=== PATIENT | female | born 1985 | race Caucasian/White ===

== ENCOUNTER 2018-05-08 02:19 | Emergency (ER) | payer OTHER, SELFPAY ==
[2018-05-08 02:21] VITALS: PULSE 104; RESP 20; TEMP 36.1; O2SAT 100; BMI 26.6
--- NOTE | 2018-05-08 02:24 | ED.RN ---
CALLED FOR EKG PER RN REQUEST, NO OLD EKGS IN MUSE
[2018-05-08 02:27] VITALS: BP 126/83; PULSE 114; RESP 18; O2SAT 100
--- NOTE | 2018-05-08 02:32 | RAD_ITS ---
STUDY: X-RAY CHEST REASON FOR EXAM: Female, 33 years old. Chest pain TECHNIQUE: Single AP portable view of the chest. COMPARISON: None. FINDINGS: The lungs are clear and expanded. There is no demonstrated pleural abnormality. Normal size heart. Normal mediastinum and cheryl. Normal visualized pulmonary arteries. Normal visualized aortic arch and descending thoracic aorta. Normal visualized thoracic spine. Normal visualized ribs, clavicles, and shoulders. There is no demonstrated abnormality of the visualized soft tissue structures of the upper abdomen. RAD/Chest 1 View (Portable) IMPRESSION: Normal x-ray examination of the chest. Electronically Signed: Willam Gu MD at 2:58 EST Tel , Service support ,
--- NOTE | 2018-05-08 02:32 | EKG12_ITS ---
Test Reason : CP Blood Pressure : / mmHG Vent. Rate : 113 BPM Atrial Rate : 113 BPM P-R Int : 132 ms QRS Dur : 084 ms QT Int : 328 ms P-R-T Axes : 073 086 041 degrees QTc Int : 449 ms Sinus tachycardia Possible Left atrial enlargement Nonspecific ST abnormality Abnormal ECG Confirmed by TERRENCE VILLALOBOS, YOLIS ([id number]), proposal editor LAURA ROWLEY ([id number]) on 05/08/2018 5:17:14 PM Referred By: GABRIELA Confirmed By:YOLIS OCAMPO MD
--- NOTE | 2018-05-08 02:38 | ED.VISSUMM ---
- ER Visit Summary Date of Service: 05/08/18 Chief Complaint: Epigastric pain History of Present Illness: The patient is a 33 F is a process recurrent epigastric pain over the past year. She was seen by her PCP and started on antacids. She was seen by GI and had a recent upper scope done. This showed scarring in her esophagus from reflux. Biopsies were taken. Patient has an appointment on the for follow-up with GI. Patient states pain has been increasing again over the past 3 days. She is been unable to eat. She woke from sleep with severe pain early this morning and came in. Physical Examination: Vital signs significant only for heart rate of 114. Patient sitting upright in bed. She appears uncomfortable but in no distress. Head neck examination unremarkable. Heart is tachycardic. Lungs sounds are clear. Abdomen is soft with focal tenderness in epigastrium. No guarding or rebound. Hypoactive bowel sounds are noted. Test Results: CBC was a white count 11.6 with 72% neutrophils. Chemistry studies significant for potassium 3.0. Glucose is 121. LFTs show total bili 1.4 and a direct bili 0.52. AST is 43. Lipase is normal. Troponin is negative. test negative. EKG is sinus tach at 113. There is minimal ST depression in the inferior lateral leads. Portable chest x-ray is unremarkable, specifically no free air under the diaphragm. Emergency Department Course and Treatment: Patient was given morphine, Zofran, IV fluids, and Carafate. I was able to review the report from an outside facility for right upper quadrant ultrasound was performed on April 13. This study was unremarkable. On repeat examination patient states pain is improved, but still present. She is given a GI cocktail. On final repeat exam patient states the pain is improved. She still describes as a dull burning sensation, but similar to how the pain was 2 days ago when it initially started back up again. Should be given prescription for Carafate and Protonix at home that she can use instead of her Nexium. She will also be given potassium replacement. Treatment Plan: [] Disposition: Discharge Impression: 1. Epigastric pain 2. Hypokalemia This note was generated with Forsakeation software. It may contain incorrect words, spelling, and punctuation that were not noted in review of the chart prior to signing ED Disposition - Plan for ED Patient: Chief Complaint: Chest Pain Referrals: Alyssa Pendleton DO [Primary Care Provider] -
[2018-05-08] MEDS: Sucralfate 1 GM Tablet PO (02:41)
[2018-05-08] MEDS: Morphine 4 MG/ML Syringe IV (02:43)
[2018-05-08] MEDS: 0.9% Normal Saline 1,000 ML 150 ML IV (02:43)
[2018-05-08] MEDS: Ondansetron 4 MG/2 ML Vial IV (02:43)
[2018-05-08 02:44] LABS: Absolute Lymphocyte Count 2.26 X10^3/ul (0.83-4.51); Absolute Neutrophil Count 8.4 X10^3/uL (2.0-7.7); Basophil# 0.02 X10^3/uL; Basophil% 0.2 % (0-1); Eosinophil# 0.08 X10^3/uL; Eosinophils% 0.7 % (0-5); Hematocrit 41.8 % (37-47); Hemoglobin 14.3 g/dl (12.0-15.0); Lymphocyte # 2.26 X10^3/ul (4.0); Lymphocyte % 19.5 % (19-41); Mean Corp Hgb Conc 34.2 g/gl (32-36); Mean Corpuscular Hgb 30.3 pg (27.0-32.0); Mean Corpuscular Volume 88.6 fL (81-99); Mean Platelet Vol. 9.2 fl (6.2-12.0); Monocyte# 0.77 X10^3/uL; Monocyte% 6.6 % (0-10); Neutrophil # 8.43 X10^3/uL (2.7-7.7); Neutrophil % 72.8 % (47-70); POSITIVE COUNT NO; POSITIVE DIFFERENTIAL NO; POSITIVE MORPHOLOGY NO; Platelet Count 389 K/mm3 (150-450); RBC Distribution Width CV 12.6 % (11.6-14.6); RBC Distribution Width SD 40.7 fl (35.1-43.9); Red Blood Count 4.72 M/mm3 (4.2-5.4); White Blood Count 11.6 K/mm3 (4.4-11.0)
[2018-05-08 03:02] LABS: AST(SGOT) 43 U/L (15-37); Alanine Aminotransfer ALT/SGPT 31 U/L (13-56); Albumin, Serum 4.1 g/dL (3.2-5.0); Alkaline Phosphatase 109 U/L (45-117); Anion Gap 14 (5-15); BUN 7 mg/dL (7-18); BUN/Creat Ratio 7.4 RATIO (10-20); Bilirubin, Direct 0.52 mg/dL (0.00-0.30); Calcium,Total 9.6 mg/dL (8.5-10.1); Chloride 101 mmol/L (98-107); Creatinine, Serum 0.94 mg/dL (0.55-1.02); EST Glomerular Filtration Rate 73 mL/min (>60); Est Glom Filt Rate - Afr Amer 89 mL/min (>60); Estimated Creatinine Clearance 68.58 ml/min; Globulin 4.3 g/dL (2.2-4.2); Glucose 121 mg/dL (74-106); Lipase 124 U/L (73-393); Protein, Total 8.4 g/dL (6.4-8.2); Sodium Level 136 mmol/L (136-145)
[2018-05-08 03:06] LABS: Pregnancy, Serum, hCG Quali. NEGATIVE Negative (0-9 Nonpreg)
[2018-05-08] MEDS: Mag Hydrox/Al Hydrox/Simeth 30 ML UDC PO (03:20)
[2018-05-08 03:24] VITALS: BP 133/70; PULSE 75; RESP 16; O2SAT 97
--- NOTE | 2018-05-08 04:00 | ED.DEP ---
ED Disposition - Plan for ED Patient: Disposition: Home or Assisted Living Chief Complaint: Chest Pain Instructions: ED Epigastric Pain [facility] Prescriptions: Pantoprazole Sodium [Protonix] 40 mg PO DAILY #14 tablet Potassium Chloride [K-Dur] 20 meq PO BID #7 tablet Sucralfate [Carafate] 1 gm PO 4X/DAY #30 tablet Additional Instructions: Follow-up with your GI doctor tomorrow as scheduled.
[2018-05-08 04:06] VITALS: BP 128/78; PULSE 80; RESP 14; O2SAT 97; O2SAT 98
== END 2018-05-08 04:15 | disposition home or self-care (01) ==
PROVIDERS: Emergency Provider Emergency Medicine
DX: R10.13 Epigastric pain (principal); E87.6 Hypokalemia; K21.9 Gastro-esophageal reflux disease without esophagitis; Z87.19 Personal history of other diseases of the digestive system; Z79.899 Other long term (current) drug therapy
CPT/HCPCS: 71045; 80048; 80076; 83690; 84484; 84703; 85025; 93005; 96361; 96374; 96375; 99285; J7030; A4216; J2405

== ENCOUNTER 2018-05-08 15:00 | Inpatient (IN) | payer OTHER, SELFPAY ==
[2018-05-08 02:21] VITALS: BMI 26.6
[2018-05-08 15:00] VITALS: BP 140/75; PULSE 92; RESP 18; TEMP 36.9; O2SAT 100; BMI 26.5
[2018-05-08] MEDS: 0.9% Normal Saline 1,000 ML 125 ML IV ×2 (15:28→18:58)
[2018-05-08] MEDS: HYDROmorphone 1 MG/ML Syringe IV ×3 (15:29→22:40)
[2018-05-08] MEDS: Ondansetron 4 MG/2 ML Vial IV ×2 (15:29→21:59)
--- NOTE | 2018-05-08 15:40 | ED.VISSUMM ---
- ER Visit Summary Date of Service: 05/08/18 Chief Complaint: [Abdominal pain] History of Present Illness: The patient is a 33 F [presents the emergency department complaint of abdominal pain is for 4 days ago. Patient states pain is been continuous and is located in the upper abdomen at times radiates to her back and chest. Patient was seen in the emergency department at 2 AM today for the same complaint and had lab workup which was relatively unremarkable. Patient was discharged home with Carafate as well as an antacid. Patient had similar pain off and on for the last 8 months and is seeming associate [employer]. Before patient had an EGD and dilatation of her esophagus apparently as she was having some difficulty swallowing and did well for several weeks afterwards. Patient denies any fevers. She denies any blood in her stool or black tarry stool. Patient did have one episode of vomiting today. She does state the pain seems to be worse with food as well as with walking. Patient has had prior appendectomy. Patient has had prior C-sections.] Patient also tells me that she had a ultrasound of the gallbladder and upper abdomen about 3 weeks ago that did not show gallstones and was unremarkable. Physical Examination: [HEENT-PERRLA, EOMI. Cranial nerves II through XII grossly intact. TMs clear. Mucous membranes moist. No adenopathy. Cardiovascular-regular rate and rhythm without murmur or ectopy Lungs-clear to auscultation, chest wall stable without crepitus or subcu emphysema Abdomen-normoactive bowel sounds, soft. Patient does have tenderness palpation over the epigastric region and right upper quadrant. There is no rebound, rigidity, or perineal signs. Extremities-intact ?4, normal range of motion, normal pulses, atraumatic] Test Results: [CBC with differential obtained showed white count 10.2, hemoglobin 13.5, hematocrit 41, platelets 354. Chemistries unremarkable. Total bilirubin was 3.8, alk phos 151, ALT 88, AST 91, lipase 159. Lactate was 0.8.] Ultrasound of the gallbladder was ordered and results are currently pending however the surgeon did look at the images and noted that the patient had gallstones. Emergency Department Course and Treatment: [Patient was medicated with Dilaudid and Zofran. Patient received normal saline.] Treatment Plan: [Case was discussed with general surgeon on-call Dr. Damon Young who evaluated patient in the emergency department and evaluated the ultrasound. ] Disposition: [Admit] Impression: [Abdominal pain Cholelithiasis ] This note was generated with [employer]omik dictation software. It may contain incorrect words, spelling, and punctuation that were not noted in review of the chart prior to signing ED Disposition - Plan for ED Patient: Chief Complaint: Abd Pain Referrals: Alyssa Pendleton DO [Primary Care Provider] -
[2018-05-08 15:46] LABS: Absolute Lymphocyte Count 0.86 X10^3/ul (0.83-4.51); Absolute Neutrophil Count 8.6 X10^3/uL (2.0-7.7); Basophil# 0.02 X10^3/uL; Basophil% 0.2 % (0-1); Eosinophil# 0.01 X10^3/uL; Eosinophils% 0.1 % (0-5); Hematocrit 40.6 % (37-47); Hemoglobin 13.5 g/dl (12.0-15.0); Lymphocyte # 0.86 X10^3/ul (4.0); Lymphocyte % 8.5 % (19-41); Mean Corp Hgb Conc 33.3 g/gl (32-36); Mean Corpuscular Hgb 30.1 pg (27.0-32.0); Mean Corpuscular Volume 90.4 fL (81-99); Mean Platelet Vol. 9.3 fl (6.2-12.0); Monocyte# 0.65 X10^3/uL; Monocyte% 6.4 % (0-10); Neutrophil % 84.6 % (47-70); POSITIVE COUNT NO; POSITIVE DIFFERENTIAL NO; POSITIVE MORPHOLOGY NO; Platelet Count 354 K/mm3 (150-450); RBC Distribution Width CV 12.8 % (11.6-14.6); RBC Distribution Width SD 41.7 fl (35.1-43.9); Red Blood Count 4.49 M/mm3 (4.2-5.4); White Blood Count 10.2 K/mm3 (4.4-11.0)
[2018-05-08 16:00] LABS: ALB/GLOB Ratio 0.9 RATIO (0.9-2.4); AST(SGOT) 91 U/L (15-37); Alanine Aminotransfer ALT/SGPT 88 U/L (13-56); Alkaline Phosphatase 151 U/L (45-117); Anion Gap 8 (5-15); BUN 6 mg/dL (7-18); BUN/Creat Ratio 7.7 RATIO (10-20); Calcium,Total 9.4 mg/dL (8.5-10.1); Chloride 103 mmol/L (98-107); Creatinine, Serum 0.78 mg/dL (0.55-1.02); EST Glomerular Filtration Rate 91 mL/min (>60); Est Glom Filt Rate - Afr Amer 111 mL/min (>60); Estimated Creatinine Clearance 82.65 ml/min; Globulin 4.3 g/dL (2.2-4.2); Glucose 99 mg/dL (74-106); Lipase 159 U/L (73-393); Potassium 3.8 mmol/L (3.5-5.1); Protein, Total 8.3 g/dL (6.4-8.2); Sodium Level 136 mmol/L (136-145)
[2018-05-08 16:49] LABS: Lactic Acid 0.8 mmol/L (0.4-2.0)
--- NOTE | 2018-05-08 17:08 | US_ITS ---
STUDY: ABDOMINAL ULTRASOUND - RIGHT UPPER QUADRANT REASON FOR VISIT: Female, 33 years old. Right upper quadrant and back pain TECHNIQUE: Ultrasound evaluation of the right upper quadrant was performed with real-time and static bacon-scale imaging. TECHNICAL QUALITY: Adequate. COMPARISON: None. FINDINGS: Liver: The liver measures 19.3 cm. There is normal echogenicity of the liver. The bile ducts are dilated. There is hepatic color flow. The direction of portal flow is hepatopetal. There is no demonstrated mass lesion. Gallbladder: There is a markedly distended gallbladder. The gallbladder wall measures 3 mm. There is a positive sonographic Fernandez's sign. There is no pericholecystic fluid. gallstones and sludge. Common Bile Duct (C.B.D.): The common bile duct measures 7 mm. Pancreas: Normal size of the head, body and tail of the pancreas. There is normal echogenicity of the pancreas. There is no demonstrated pancreatic mass or cyst. Right Kidney: Normal size of the right kidney. The right kidney measures 10.3 cm. Normal renal cortex. The right cortex measures 1.3 cm. There is no demonstrated renal mass or cyst. There is no right hydronephrosis. US/Gallbladder IMPRESSION: Cholelithiasis, possible cholecystitis, and probable common bile duct obstruction. Recommend follow-up HIDA scan and/or MRCP. Electronically Signed: Faraz Britt MD at 19:17 EST , Service support ,
[2018-05-08 17:44] VITALS: BP 137/96; PULSE 89; RESP 16; O2SAT 99
--- NOTE | 2018-05-08 17:45 | NURSING ---
MED SURG ABD PAIN, BILIARY COLIC, CHOLELITHIASIS OLIVER
--- NOTE | 2018-05-08 18:02 | PCM.HP.STD ---
Problem List (1) Obstructive jaundice Status: Acute (2) Cholelithiasis Status: Acute Qualifiers: Cholelithiasis location: bile duct Cholecystitis presence: with cholecystitis Cholecystitis acuity: acute Biliary obstruction: with biliary obstruction Qualified Code(s): K80.43 - Calculus of bile duct with acute cholecystitis with obstruction History of Present Illness Date of Admission: 05/08/18 The patient is a 33 year old F complaining of epigastric and right upper quadrant pain. The pain started at the end of March. She was at another hospital on April 12 and had dilation of the distal esophagus with EGD. The patient had an ultrasound at the outside hospital which apparently showed nothing. Today she was in the emergency room earlier today with right upper quadrant pain and LFTs were slightly elevated. She was sent home. She presented back with continuing pain and nausea and vomiting. Past Medical History Allergies No Known Allergies Allergy (Verified 05/08/18 15:02) Home Medications: Ambulatory Orders Medication Instructions Recorded Norethindrone-E.estradiol-Iron 1 tab PO DAILY 05/08/18 [Tri-Legest Fe-28 Day Tablet] Pantoprazole Sodium [Protonix] 40 mg PO DAILY #14 tablet 05/08/18 Potassium Chloride [K-Dur] 20 meq PO BID #7 tablet 05/08/18 Sucralfate [Carafate] 1 gm PO 4X/DAY #30 tablet 05/08/18 Surgical History: - - and open appendectomy Smoking Status: Never smoker Alcohol: None Drugs: None - *Family History Maternal History Items: - - Gallbladder issues Review of Systems Constitutional: Reports: Anorexia. Denies: Fever HEENT: Denies: Difficulty Swallowing Cardiovascular: Denies: Chest Pain Respiratory: Denies: Cough, Shortness of Breath Gastrointestinal: Reports: Abdominal Pain, Nausea, Vomiting. Denies: Hematemesis, Hematochezia Genitourinary: Denies: Dysuria Musculoskeletal: Denies: Leg Pain Skin: Denies: Dryness, Jaundice Neurological: Denies: Balance problems Psychiatric: Denies: Anxiety, Depression Hematologic/ Lymphatic: Denies: Anemia VTE Information - Inpt Only VTE Present on Admission: No VTE Mechan Device Prophylaxis: SCD's Patient Problems: Active and Suspected Problems Obstructive jaundice (Acute) Cholelithiasis (Acute) - Physical Exam General: Alert, Oriented x3, Cooperative HEENT: Atraumatic, PERRLA, EOMI Neck: No JVD Lungs: Normal air movement Cardiovascular: Regular rate, Regular Rhythm Abdomen: Soft, Non-Distended, Tender - Tender in the right upper quadrant Extremities: No clubbing Skin: No rashes Musculoskeletal: No Muscle Wasting Neurological: Cranial nerves II-XII grossly intact Psych/Mental Status: Normal Affect Vital Signs Temp Pulse Resp BP Pulse Ox 98.5 F 89 16 137/96 H 99 05/08/18 15:00 05/08/18 17:44 05/08/18 17:44 05/08/18 17:44 05/08/18 17:44 Oxygen Delivery Method Room Air Weight: 145 lb Body Mass Index (BMI) 26.5 Laboratory Tests Past 24 Hrs 05/08/18 05/08/18 05/08/18 15:30 15:30 15:30 WBC 10.2 RBC 4.49 Hgb 13.5 Hct 40.6 MCV 90.4 MCH 30.1 MCHC 33.3 RDW 12.8 RDW Differential 41.7 Plt Count 354 MPV 9.3 Immature Gran % (Auto) 0.200 Neut % (Auto) 84.6 H Lymph % (Auto) 8.5 L [place] % (Auto) 6.4 Eos % (Auto) 0.1 Baso % (Auto) 0.2 Absolute Neuts (auto) 8.6 H Absolute Lymphs (auto) 0.86 Total Counted Not Reportable Sodium 136 Potassium 3.8 Chloride 103 Carbon Dioxide 25.0 Anion Gap 8 BUN 6 L Creatinine 0.78 Estim Creat Clear Calc 82.65 Est GFR (MDRD) Af Amer 111 Est GFR (MDRD) Non-Af 91 BUN/Creatinine Ratio 7.7 L Glucose 99 Lactic Acid Cancelled Calcium 9.4 Total Bilirubin 3.80 H AST 91 H ALT 88 H Alkaline Phosphatase 151 H Total Protein 8.3 H Albumin 4.0 Globulin 4.3 H Albumin/Globulin Ratio 0.9 Lipase 159 05/08/18 16:19 WBC RBC Hgb Hct MCV MCH MCHC RDW RDW Differential Plt Count MPV Immature Gran % (Auto) Neut % (Auto) Lymph % (Auto) [place] % (Auto) Eos % (Auto) Baso % (Auto) Absolute Neuts (auto) Absolute Lymphs (auto) Total Counted Sodium Potassium Chloride Carbon Dioxide Anion Gap BUN Creatinine Estim Creat Clear Calc Est GFR (MDRD) Af Amer Est GFR (MDRD) Non-Af BUN/Creatinine Ratio Glucose Lactic Acid 0.8 Calcium Total Bilirubin AST ALT Alkaline Phosphatase Total Protein Albumin Globulin Albumin/Globulin Ratio Lipase Assessment/Plan All Active Problems Obstructive jaundice (Acute) Cholelithiasis (Acute) 33-year-old female with obstructive jaundice 1. The patient had gallstones on ultrasound of her gallbladder. Also slightly distended common bile duct. Her liver enzymes have doubled since this morning when she was in the emergency room. 2. I explained all this to the patient and I explained ERCP and subsequent laparoscopic cholecystectomy of the patient. I explained that if her liver enzymes continue to be elevated tomorrow I will do an ERCP tomorrow with a laparoscopic cholecystectomy the following day. I explained that if her liver enzymes decreased and she is feeling better I will take her for laparoscopic cholecystectomy with cholangiogram tomorrow. 3. I explained both laparoscopic cholecystectomy and ERCP to the patient in great detail. I explained the risks including but not limited to bleeding, infection, perforation of the bile duct or bowel, pancreatitis, injury to the structures surrounding the gallbladder such as the liver or bowels. The patient understands risks and willing to proceed with both procedures if needed. 4. I will admit the patient tonight and checked LFTs in the morning. I will start her on antibiotics due to the obstructive jaundice to prevent cholangitis. The patient will remain n.p.o. on IV fluids. Damon Weinstein MD Pager: [facility] [address] [place] [address], [address] [place] [address] Office:
[2018-05-08 18:48] VITALS: BMI 26.1
[2018-05-08 18:51] VITALS: BP 138/67; PULSE 71; RESP 16; TEMP 37; O2SAT 100
[2018-05-08] MEDS: Piperacil/Tazobactam 3.375 GM/50 ML ML IV (18:58)
[2018-05-08 19:08] VITALS: BMI 26.1
[2018-05-08] MEDS: Morphine 2 MG/ML Syringe IV (20:46)
[2018-05-08 20:49] VITALS: BP 137/84; PULSE 62; RESP 16; TEMP 36.8; O2SAT 100
[2018-05-08 20:50] VITALS: BP 126/86; PULSE 87; RESP 16; TEMP 36.9; O2SAT 100; BMI 26.2
[2018-05-09] VITALS (9 sets, daily range): BP systolic 102–126; BP diastolic 54–86; PULSE 74–115; RESP 16–18; TEMP 36.5–37.2; O2SAT 93–100
[2018-05-09] MEDS: HYDROmorphone 1 MG/ML Syringe IV ×5 (00:40→17:02)
[2018-05-09] MEDS: 0.9% NaCl Peripheral Flush Adult/Peds IV ×3 (00:40→05:48)
[2018-05-09] MEDS: 0.9% Normal Saline 1,000 ML 125 ML IV ×4 (02:48→22:57)
[2018-05-09] MEDS: Piperacil/Tazobactam 3.375 GM/50 ML ML IV ×3 (05:49→21:44)
[2018-05-09] MEDS: Ondansetron 4 MG/2 ML Vial IV ×2 (06:00→17:01)
[2018-05-09 06:05] LABS: Absolute Lymphocyte Count 1.62 X10^3/ul (0.83-4.51); Absolute Neutrophil Count 5.3 X10^3/uL (2.0-7.7); Basophil# 0.02 X10^3/uL; Basophil% 0.3 % (0-1); Eosinophil# 0.04 X10^3/uL; Eosinophils% 0.5 % (0-5); Hematocrit 35.2 % (37-47); Hemoglobin 11.4 g/dl (12.0-15.0); Lymphocyte # 1.62 X10^3/ul (4.0); Lymphocyte % 21.1 % (19-41); Mean Corp Hgb Conc 32.4 g/gl (32-36); Mean Corpuscular Hgb 29.7 pg (27.0-32.0); Mean Corpuscular Volume 91.7 fL (81-99); Mean Platelet Vol. 9.2 fl (6.2-12.0); Monocyte# 0.66 X10^3/uL; Monocyte% 8.6 % (0-10); Neutrophil # 5.31 X10^3/uL (2.7-7.7); Neutrophil % 69.4 % (47-70); Platelet Count 270 K/mm3 (150-450); RBC Distribution Width CV 13.2 % (11.6-14.6); RBC Distribution Width SD 43.5 fl (35.1-43.9); Red Blood Count 3.84 M/mm3 (4.2-5.4); White Blood Count 7.7 K/mm3 (4.4-11.0)
[2018-05-09 06:18] LABS: POSITIVE COUNT NO; POSITIVE DIFFERENTIAL NO; POSITIVE MORPHOLOGY NO
[2018-05-09 06:27] LABS: ALB/GLOB Ratio 0.9 RATIO (0.9-2.4); AST(SGOT) 64 U/L (15-37); Alanine Aminotransfer ALT/SGPT 77 U/L (13-56); Albumin, Serum 3.1 g/dL (3.2-5.0); Alkaline Phosphatase 132 U/L (45-117); Anion Gap 10 (5-15); BUN 4 mg/dL (7-18); BUN/Creat Ratio 5.9 RATIO (10-20); Calcium,Total 8.3 mg/dL (8.5-10.1); Chloride 107 mmol/L (98-107); Creatinine, Serum 0.68 mg/dL (0.55-1.02); EST Glomerular Filtration Rate 108 mL/min (>60); Est Glom Filt Rate - Afr Amer 131 mL/min (>60); Estimated Creatinine Clearance 94.81 ml/min; Globulin 3.4 g/dL (2.2-4.2); Glucose 80 mg/dL (74-106); Potassium 3.9 mmol/L (3.5-5.1); Protein, Total 6.5 g/dL (6.4-8.2); Sodium Level 140 mmol/L (136-145)
--- NOTE | 2018-05-09 07:51 | PN.SURG_ITS ---
Patient Problems: Active and Suspected Problems Obstructive jaundice (Acute) Cholelithiasis (Acute) Subjective: The patient still having right upper quadrant pain this morning. - Physical Exam General: Alert, Oriented x3, Cooperative Cardiovascular: Regular rate, Regular Rhythm Abdomen: Soft, Non-Distended, Tender Extremities: No clubbing Vital Signs Temp Pulse Resp BP Pulse Ox 98.9 F 78 16 125/74 H 98 05/09/18 02:50 05/09/18 02:50 05/09/18 02:50 05/09/18 02:50 05/09/18 02:50 Oxygen Delivery Method Room Air Weight: 142 lb 10.225 oz Body Mass Index (BMI) 26.1 Intake and Output for Last 24 Hours 05/07/18 05/08/18 05/09/18 23:59 23:59 23:59 Intake Total 582 / 582 743 / 743 Balance 582 / 582 743 / 743 Laboratory Tests Past 24 Hrs 05/08/18 05/08/18 05/08/18 15:30 15:30 15:30 WBC 10.2 RBC 4.49 Hgb 13.5 Hct 40.6 MCV 90.4 MCH 30.1 MCHC 33.3 RDW 12.8 RDW Differential 41.7 Plt Count 354 MPV 9.3 Immature Gran % (Auto) 0.200 Neut % (Auto) 84.6 H Lymph % (Auto) 8.5 L [place] % (Auto) 6.4 Eos % (Auto) 0.1 Baso % (Auto) 0.2 Absolute Neuts (auto) 8.6 H Absolute Lymphs (auto) 0.86 Total Counted Not Reportable Sodium 136 Potassium 3.8 Chloride 103 Carbon Dioxide 25.0 Anion Gap 8 BUN 6 L Creatinine 0.78 Estim Creat Clear Calc 82.65 Est GFR (MDRD) Af Amer 111 Est GFR (MDRD) Non-Af 91 BUN/Creatinine Ratio 7.7 L Glucose 99 Lactic Acid Cancelled Calcium 9.4 Total Bilirubin 3.80 H AST 91 H ALT 88 H Alkaline Phosphatase 151 H Total Protein 8.3 H Albumin 4.0 Globulin 4.3 H Albumin/Globulin Ratio 0.9 Lipase 159 05/08/18 05/09/18 05/09/18 16:19 05:40 05:40 WBC 7.7 RBC 3.84 L Hgb 11.4 L Hct 35.2 L MCV 91.7 MCH 29.7 MCHC 32.4 RDW 13.2 RDW Differential 43.5 Plt Count 270 MPV 9.2 Immature Gran % (Auto) 0.100 Neut % (Auto) 69.4 Lymph % (Auto) 21.1 [place] % (Auto) 8.6 Eos % (Auto) 0.5 Baso % (Auto) 0.3 Absolute Neuts (auto) 5.3 Absolute Lymphs (auto) 1.62 Total Counted Not Reportable Sodium 140 Potassium 3.9 Chloride 107 Carbon Dioxide 23.0 Anion Gap 10 BUN 4 L Creatinine 0.68 Estim Creat Clear Calc 94.81 Est GFR (MDRD) Af Amer 131 Est GFR (MDRD) Non-Af 108 BUN/Creatinine Ratio 5.9 L Glucose 80 Lactic Acid 0.8 Calcium 8.3 L Total Bilirubin 4.50 H AST 64 H ALT 77 H Alkaline Phosphatase 132 H Total Protein 6.5 Albumin 3.1 L Globulin 3.4 Albumin/Globulin Ratio 0.9 Lipase Medical Necessity - Tobacco Use Smoking Status: Never smoker Assessment/Plan All Active Problems Obstructive jaundice (Acute) Cholelithiasis (Acute) 33-year-old female with obstructive jaundice and cholelithiasis 1. The patient's bilirubin has continued to rise. I do recommend ERCP before cholecystectomy to ensure that the duct is clear. I went over the procedure with the patient once more this morning and all questions were answered. We will proceed with ERCP this afternoon and laparoscopic cholecystectomy tomorrow morning. Damon Weinstein MD Pager: [facility] [address] [place] [address], [address] [place] [address] Office:
[2018-05-09 08:54] LABS: Internal QC Validated? YES +Cl - CLEAR BKGD; Pregnancy, Urine Negative Negative
--- NOTE | 2018-05-09 09:55 | NURSING ---
report given to Bella schofield on ac
--- NOTE | 2018-05-09 10:00 | RAD_ITS ---
STUDY: ERCP. REASON FOR EXAM: Female, 33 years old. Choledocholithiasis. FLUOROSCOPY TIME (if supplied): (10:57) minutes/seconds. 6 images were submitted. TECHNIQUE: An ERCP was performed by the surgeon. Contrast was injected. Imaging was submitted. COMPARISON: None. FINDINGS: Mild dilatation of the common bile duct. Small filling defects are seen in the distal portion of the common bile duct. This is suggestive of choledocholithiasis. A stent was placed. RAD/ERCP Biliary Only IMPRESSION: Choledocholithiasis. Biliary ductal stent placement. Electronically Signed: Sunday Cuevas MD at 14:15 EST Tel [phone], Service support ,
--- NOTE | 2018-05-09 11:00 | GALL_PTH ---
PATIENT: RIO CASTELLON LOC: MS2 U#:[id number] AGE/SX: 33/F ROOM: MS210 RE05/08/[address]: Dr. Damon Weinstein MD : [id number] BED: 1 DIS: 05/10/2018 SPEC #: [id number] RECD: 05/10/18 09:46 STATUS: NEAL REHoracio #: [id number] GURU: 05/09/18 11:[address]: Damon Weinstein DEPT: SURGICAL PATHOLOGY RECD BY: Alexsander Schafer ENTERED: 05/10/18 12:16 SP TYPE: OUMAR TODD DR: Dr. Alyssa Pendleton, Tissues: Gallbladder, NOS Procedures: Surgery Specimen Level III HEADER OPERATION: Partial laparoscopic cholecystectomy with IOC PRE-OP DIAGNOSIS: Cholelithiasis, acute cholecystitis TISSUE SUBMITTED: Gallbladder MICROSCOPIC DIAGNOSIS Gallbladder, cholecystectomy: Chronic cholecystitis. Benign pericystic lymph node. AM:vince 05/11/18 MICROSCOPIC DESCRIPTION Slides are reviewed. GROSS DESCRIPTION Received is one container labeled with the patient's name and designated gallbladder. The specimen consists of a gallbladder measuring 7.5 cm in length and up to 4 cm in diameter. The proximal cystic duct resection margin measures up to 2.5 cm in diameter. The external surface is pink-vang, smooth and glistening for the most part. Focally it is granular, hemorrhagic and contains cautery artifact. The gallbladder contains light yellow to hemorrhagic bile. The mucosa is bile-stained and without any mass lesions. No stones are identified. The gallbladder wall measures up to 0.4 cm in thickness. Smocker sections from the gallbladder and the cystic duct are submitted in one cassette. / SJ:vince 05/10/18 TC:3 [facility]: [id number]
[2018-05-09] MEDS: Pantoprazole Sodium 40 MG Tablet PO (17:17)
[2018-05-10] VITALS (10 sets, daily range): BP systolic 111–141; BP diastolic 73–89; PULSE 72–94; RESP 16–18; TEMP 36.7–37.5; O2SAT 97–100; BMI 27.1
[2018-05-10] MEDS: Piperacil/Tazobactam 3.375 GM/50 ML ML IV ×2 (05:39→12:41)
[2018-05-10] MEDS: 0.9% Normal Saline 1,000 ML 125 ML IV (05:40)
[2018-05-10 05:45] LABS: Absolute Lymphocyte Count 1.79 X10^3/ul (0.83-4.51); Absolute Neutrophil Count 3.1 X10^3/uL (2.0-7.7); Basophil# 0.02 X10^3/uL; Basophil% 0.4 % (0-1); Eosinophil# 0.05 X10^3/uL; Eosinophils% 0.9 % (0-5); Hematocrit 32.8 % (37-47); Hemoglobin 10.6 g/dl (12.0-15.0); Lymphocyte # 1.79 X10^3/ul (4.0); Mean Corp Hgb Conc 32.3 g/gl (32-36); Mean Corpuscular Hgb 29.9 pg (27.0-32.0); Mean Corpuscular Volume 92.4 fL (81-99); Mean Platelet Vol. 9.2 fl (6.2-12.0); Monocyte# 0.45 X10^3/uL; Monocyte% 8.3 % (0-10); Neutrophil # 3.11 X10^3/uL (2.7-7.7); Neutrophil % 57.2 % (47-70); Platelet Count 249 K/mm3 (150-450); RBC Distribution Width SD 42.6 fl (35.1-43.9); Red Blood Count 3.55 M/mm3 (4.2-5.4); White Blood Count 5.4 K/mm3 (4.4-11.0)
[2018-05-10 05:49] LABS: POSITIVE COUNT NO; POSITIVE DIFFERENTIAL NO; POSITIVE MORPHOLOGY NO
--- NOTE | 2018-05-10 05:53 | NURSING ---
Taken to surgery at this time with [employer]AL[employer] SYSTEMS MANAGER Jeffry. in attendance. Report given to AC
[2018-05-10 06:07] LABS: ALB/GLOB Ratio 0.9 RATIO (0.9-2.4); AST(SGOT) 53 U/L (15-37); Alanine Aminotransfer ALT/SGPT 68 U/L (13-56); Alkaline Phosphatase 130 U/L (45-117); Anion Gap 10 (5-15); BUN 3 mg/dL (7-18); BUN/Creat Ratio 5.2 RATIO (10-20); Calcium,Total 8.5 mg/dL (8.5-10.1); Chloride 108 mmol/L (98-107); Creatinine, Serum 0.58 mg/dL (0.55-1.02); EST Glomerular Filtration Rate 128 mL/min (>60); Est Glom Filt Rate - Afr Amer 155 mL/min (>60); Estimated Creatinine Clearance 106.05 ml/min; Globulin 3.3 g/dL (2.2-4.2); Glucose 86 mg/dL (74-106); Potassium 3.4 mmol/L (3.5-5.1); Protein, Total 6.3 g/dL (6.4-8.2); Sodium Level 140 mmol/L (136-145)
--- NOTE | 2018-05-10 07:30 | RAD_ITS ---
STUDY: INTRAOPERATIVE CHOLANGIOGRAM. REASON FOR EXAM: Female, 33 years old. Obstructive jaundice. Prior attempted stone removal and stent placement. FLUOROSCOPY TIME (if supplied): (0:29) minutes/seconds TECHNIQUE: Intraoperative cholangiogram was performed. COMPARISON: Comparison is made with prior ERCP dated May 09, 2018. FINDINGS: This is a limited study. There is mild dilatation of the intrahepatic biliary ducts. Questionable tiny intraluminal defects in the common bile duct. RAD/Cholangiogram/ O R,Initial IMPRESSION: Limited examination. Electronically Signed: Sunday Cuevas MD at 7:52 EST Tel [phone], Service support ,
[2018-05-10] MEDS: Bupiv/Epi 0.5% Mpf 30 ML Vial (08:44)
--- NOTE | 2018-05-10 09:13 | PCM.OPRPT ---
Problem List (1) Obstructive jaundice Status: Acute (2) Cholelithiasis Status: Acute Qualifiers: Cholelithiasis location: bile duct Cholecystitis presence: with cholecystitis Cholecystitis acuity: acute Biliary obstruction: with biliary obstruction Qualified Code(s): K80.43 - Calculus of bile duct with acute cholecystitis with obstruction Report of Operation Date of Procedure: 05/10/18 Pre-Operative Diagnosis: Acute cholecystitis Post-Operative Diagnosis: Same Surgery/Procedure Performed:: Laparoscopic partial cholecystectomy with cholangiogram Description of Surgical Findings:: The infundibulum and cystic duct region were very inflamed necessitating a partial cholecystectomy just above the cystic duct using a stapler. Cholangiogram showed good flow into the duodenum via the stent with a small stone in the mid common bile duct. Specimen's removed: Gallbladder and contents Description of Procedure: After obtaining informed consent patient was brought back to the operating room. General anesthesia was induced. The abdomen was prepped and draped in usual sterile fashion. A small midline incision was made superior to the umbilicus and deepened to the level of fascia. The fascia was elevated and incised. Next the peritoneum was elevated and incised in the same fashion. Finger sweep was performed and the Barrientos trocar was placed into the abdomen. The balloon was inflated. The abdomen was inflated to 15 mmHg. The liver was very enlarged necessitating a suprapubic port as the camera port. This was placed below the umbilicus under direct visualization. Next 2 5 mm ports were placed in the right lower quadrant due to the size of her liver. The gallbladder was elevated and retracted toward the right shoulder. The peritoneum was stripped from the gallbladder. The infundibulum was located and retracted laterally. Next the triangle of [place]ot was dissected. This was very inflamed. cholangiograms were performed. The Begum clamp was used to clamp across the infundibulum and the catheter needle was inserted into the gallbladder. Under fluoroscopy contrast was instilled into the gallbladder and the common duct, cystic duct as well as proximal hepatic ducts were identified. There was good filling of the duodenum. The stent was in place. There was a small filling defect noted just proximal to the stent in the common bile duct. The clamp was removed as well as the needle and the infundibulum was grasped once more. I was unable to dissect distal to the cystic duct due to inflammation. Therefore the gallbladder was dissected free of the liver working up toward the dome with electrocautery. Once the gallbladder was fully removed from the liver bed a 60 mm [place] stapler was placed into the abdomen and across the infundibulum of the gallbladder. The stapler was fired and the gallbladder was placed in an Endo Catch bag. About 1 cm of gallbladder remained distal to the staple line. The gallbladder was then removed through the umbilical incision. The camera was then reinserted through the umbilical port. The gallbladder fossa was inspected once more and noted to be hemostatic with no leaking bile. The abdomen was suctioned dry. The 5 mm ports were removed under direct visualization. The umbilical port was then removed and the air was removed from the abdomen. Next using an 0 Vicryl suture the umbilical fascia was closed in a [id number]-[id number]-fyimo fashion. The umbilical port site was irrigated local anesthetic was administered to all the incisions. All the incisions were closed with interrupted subcuticular 4-0 Monocryl sutures followed by Steri-Strips and dressings. The patient was awoken and taken to PACU in stable condition. - Admit VTE Documentation VTE Mechan Device Prophylaxis: SCD's
--- NOTE | 2018-05-10 09:18 | OP.PCM_ITS ---
Problem List (1) Obstructive jaundice Status: Acute (2) Cholelithiasis Status: Acute Qualifiers: Cholelithiasis location: bile duct Cholecystitis presence: with cholecystitis Cholecystitis acuity: acute Biliary obstruction: with biliary obstruction Qualified Code(s): K80.43 - Calculus of bile duct with acute cholecystitis with obstruction Report of Operation Date of Procedure: 05/10/18 Pre-Operative Diagnosis: Acute cholecystitis Post-Operative Diagnosis: Same Surgery/Procedure Performed:: Laparoscopic partial cholecystectomy with cholangiogram Description of Surgical Findings:: The infundibulum and cystic duct region were very inflamed necessitating a partial cholecystectomy just above the cystic duct using a stapler. Cholangiogram showed good flow into the duodenum via the stent with a small s tone in the mid common bile duct. Specimen's removed: Gallbladder and contents Description of Procedure: After obtaining informed consent patient was brought back to the operating room. General anesthesia was induced. The abdomen was prepped and draped in usual sterile fashion. A small midline incision was made superior to the umbilicus and deepened to the level of fascia. The fascia was elevated and incised. Next the peritoneum was elevated and incised in the same fashion. Finger sweep was performed and the Barrientos trocar was placed into the abdomen. The balloon was inflated. The abdomen was inflated to 15 mmHg. The liver was very enlarged necessitating a suprapubic port as the camera port. This was placed below the umbilicus under direct visualization. Next 2 5 mm ports were placed in the right lower quadrant due to the size of her liver. The gallbladder was elevated and retracted toward the right shoulder. The peritoneum was stripped from the gallbladder. The infundibulum was located and retracted laterally. Next the triangle of Calot was dissected. This was very inflamed. cholangiograms were performed. The Begum clamp was used to clamp across the infundibulum and the catheter needle was inserted into the gallbladder. Under fluoroscopy contrast was instilled into the gallbladder and the common duct, cystic duct as well as proximal hepatic ducts were identified. There was good filling of the duodenum. The stent was in place. There was a small filling defect noted just proximal to the stent in the common bile duct. The clamp was removed as well as the needle and the infundibulum was grasped once more. I was unable to dissect distal to the cystic duct due to inflammation. Therefore the gallbladder was dissected free of the liver working up toward the dome with electrocautery. Once the gallbladder was fully removed from the liver bed a 60 mm [place] stapler was placed into the abdomen and across the infundibulum of the gallbladder. The stapler was fired and the gallbladder was placed in an Endo Catch bag. About 1 cm of gallbladder remained distal to the staple line. The gallbladder was then removed through the umbilical incision. The camera was then reinserted through the umbilical port. The gallbladder fossa was inspected once more and noted to be hemostatic with no leaking bile. The abdomen was suctioned dry. The 5 mm ports were removed under direct visualization. The umbilical port was then removed and the air was removed from the abdomen. Next using an 0 Vicryl suture the umbilical fascia was closed in a [id number]-eo-jvkva fashion. The umbilical port site was irrigated local anesthetic was administered to all the incisions. All the incisions were closed with interrup mariella subcuticular 4-0 Monocryl sutures followed by Steri-Strips and dressings. The patient was awoken and taken to PACU in stable condition. - Admit VTE Documentation VTE Mechan Device Prophylaxis: SCD's
--- NOTE | 2018-05-10 09:20 | DCINST_ITS ---
Discharge Diet: Light diet - advance as tolerated Discharge Activity: Return to Normal Activity, May Not Drive - for 2-3 days or while taking narcotic pain medicataions., - - Do not drive, work heavy equipment or sign legal documents for 24 hours. May shower in (days): 1 - with the bandage in place. Lifting Restrictions: 20 lbs for 2 weeks Additional Activity Instructions:: Pain medication may cause nausea. You should typically eat light foods as you take your pain medications. Pain medication may also cause constipation. If this is a problem for you, please discuss with your doctor. Call your doctor if your incision/area has: Continuous Slow Oozing, Sudden Increased Bleeding, Increased Pain/ Swelling, Increased Redness, Foul Smelling Discharge, Fever of 101 or Higher Call your doctor if you observe: Fever of 101 or Higher Suture Line Care: Avoid Pulling/Pushing, Avoid Pinching/Bending Additional Dressing/Incision Instructions:: Leave operative bandaids on for 2 days. When you remove dressing, leave Steri-Strips on until your follow-up appointment, or until the Steri-Strips fall off on their own. Allergies/Adverse Reactions: Allergies No Known Allergies Allergy (Verified 05/08/18 15:02) Medications to take at Discharge Norethindrone-E.estradiol-Iron [Tri-Legest Fe-28 Day Tablet] 1 tab PO DAILY 05/08/18 Pantoprazole Sodium [Protonix] 40 mg PO DAILY #14 tablet 05/08/18 Potassium Chloride [K-Dur] 20 meq PO BID #7 tablet 05/08/18 Sucralfate [Carafate] 1 gm PO 4X/DAY #30 tablet 05/08/18 Oxycodone HCl/Acetaminophen [Percocet 5/325] 1 - 2 tablet PO Q4H PRN PRN 7 Days #40 tablet 05/10/18 The following prescriptions were given: Oxycodone HCl/Acetaminophen [Percocet 5/325] 1 - 2 tablet PO Q4H PRN PRN 7 Days #40 tablet PRN Reason: Pain Primary Care Physician: Alyssa Pendleton DO [Primary Care Provider] - Test Results: Test results from this visit will be discussed in further detail at your follow- up appointment, if applicable. Please Follow Up With: Daomn Weinstein MD When: Please call to schedule 2 week follow up appointment. [phone]
--- NOTE | 2018-05-10 09:20 | PCM.DC.SUM ---
Discharge Date and Diagnosis - Problem List Patient Problems: Active and Suspected Problems Acute cholecystitis (Acute) Cholangitis (Acute) Date of Admission: 05/08/18 Date of Discharge: 05/10/18 - Primary Discharge Diagnosis Active and Suspected Problems Acute cholecystitis (Acute) Cholangitis (Acute) Obstructive jaundice (Acute) Cholelithiasis (Acute) Hospital Course and Treatment Imaging Results: 05/10/18 07:30 Cholangiogram/ O R,Initial [RAD] Urgent O.R. Fluoro for C-Arm [RAD] Urgent Clinical Impression(s) from Imaging Studies Gallbladder Ultrasound 05/08/18 17:08 IMPRESSION: Cholelithiasis, possible cholecystitis, and probable common bile duct obstruction. Recommend follow-up HIDA scan and/or MRCP. Electronically Signed: Faraz Britt MD at 19:17 EST , Service support , ERCP X-Ray 05/09/18 10:00 IMPRESSION: Choledocholithiasis. Biliary ductal stent placement. Electronically Signed: Sunday Cuevas MD at 14:15 EST Tel [phone], Service support , Operations: cholecystecomy, ERCP Procedures: None Summary of Care Provided: The patient is a 33 year old F presented with right upper quadrant pain. Ultrasound showed a dilated common bile duct and LFTs were elevated. It also showed gallstones in the gallbladder. She was admitted and taken for ERCP the following day in which a large gallstone was found in her common bile duct. The gallstone was crushed and mostly removed. The patient also had purulent material in her common bile duct indicating cholangitis. A stent was placed. The following day the patient was taken for laparoscopic cholecystectomy and the patient had acute cholecystitis. Following cholecystectomy the patient was started on a diet and when she tolerated diet she was discharged home in stable condition. She will follow-up for me in 4-6 weeks for repeat ERCP with stent removal. Patient Problems: Active and Suspected Problems Acute cholecystitis (Acute) Cholangitis (Acute) - Physical Exam Vital Signs Temp Pulse Resp BP Pulse Ox 98.1 F 87 18 122/78 H 100 05/10/18 04:55 05/10/18 04:55 05/10/18 04:55 05/10/18 04:55 05/10/18 04:55 Oxygen Delivery Method Room Air Weight: 147 lb 11.355 oz Body Mass Index (BMI) 27.1 Intake and Output for Last 24 Hours 05/08/18 05/09/18 05/10/18 23:59 23:59 23:59 Intake Total 582 / 582 1243 / 1243 3109 / 3109 Output Total 1600 / 1600 Balance 582 / 582 1243 / 1243 1509 / 1509 Laboratory Tests Past 24 Hrs 05/10/18 05/10/18 05:25 05:25 WBC 5.4 RBC 3.55 L Hgb 10.6 L Hct 32.8 L MCV 92.4 MCH 29.9 MCHC 32.3 RDW 13.0 RDW Differential 42.6 Plt Count 249 MPV 9.2 Immature Gran % (Auto) 0.200 Neut % (Auto) 57.2 Lymph % (Auto) 33.0 [place] % (Auto) 8.3 Eos % (Auto) 0.9 Baso % (Auto) 0.4 Absolute Neuts (auto) 3.1 Absolute Lymphs (auto) 1.79 Total Counted Not Reportable Sodium 140 Potassium 3.4 L Chloride 108 H Carbon Dioxide 22.0 Anion Gap 10 BUN 3 L Creatinine 0.58 Estim Creat Clear Calc 106.05 Est GFR (MDRD) Af Amer 155 Est GFR (MDRD) Non-Af 128 BUN/Creatinine Ratio 5.2 L Glucose 86 Calcium 8.5 Total Bilirubin 3.10 H AST 53 H ALT 68 H Alkaline Phosphatase 130 H Total Protein 6.3 L Albumin 3.0 L Globulin 3.3 Albumin/Globulin Ratio 0.9 Discharge Diet: Light diet - advance as tolerated Discharge Activity: Return to Normal Activity, May Not Drive - for 2-3 days or while taking narcotic pain medicataions., - - Do not drive, work heavy equipment or sign legal documents for 24 hours. May shower in (days): 1 - with the bandage in place. Additional Activity Instructions:: Pain medication may cause nausea. You should typically eat light foods as you take your pain medications. Pain medication may also cause constipation. If this is a problem for you, please discuss with your doctor. Call your doctor if your incision/area has: Continuous Slow Oozing, Sudden Increased Bleeding, Increased Pain/ Swelling, Increased Redness, Foul Smelling Discharge, Fever of 101 or Higher Call your doctor if you observe: Fever of 101 or Higher Suture Line Care: Avoid Pulling/Pushing, Avoid Pinching/Bending Additional Dressing/Incision Instructions:: Leave operative bandaids on for 2 days. When you remove dressing, leave Steri-Strips on until your follow-up appointment, or until the Steri-Strips fall off on their own. Home Medications: Medications to take at Discharge Norethindrone-E.estradiol-Iron [Tri-Legest Fe-28 Day Tablet] 1 tab PO DAILY 05/08/18 Pantoprazole Sodium [Protonix] 40 mg PO DAILY #14 tablet 05/08/18 RX: Potassium Chloride [K-Dur] 20 meq PO BID #7 tablet 05/08/18 Sucralfate [Carafate] 1 gm PO 4X/DAY #30 tablet 05/08/18 Oxycodone HCl/Acetaminophen [Percocet 5/325] 1 - 2 tablet PO Q4H PRN PRN 7 Days #40 tablet 05/10/18 Following Prescrptions Were Given to Patient: Oxycodone HCl/Acetaminophen [Percocet 5/325] 1 - 2 tablet PO Q4H PRN PRN 7 Days #40 tablet PRN Reason: Pain Primary Care Physician: Alyssa Pendleton DO [Primary Care Provider] - Please Follow Up With: Damon Weinstein MD When: Please call to schedule 2 week follow up appointment. [phone] Medical Necessity - Tobacco Use Smoking Status: Never smoker Meaningful Use Info Meaningful Use Diagnoses (Choose all that apply): None applicable
[2018-05-10] MEDS: Acetaminophen 325 MG Tablet 650 MG PO (12:40)
[2018-05-10] MEDS: Pantoprazole Sodium 40 MG Tablet PO (12:40)
[2018-05-10] MEDS: oxyCODONE 5 MG Tablet PO (12:40)
--- NOTE | 2018-05-14 10:55 | OP.ENDO_ITS ---
Patient Name: Emily Berg Procedure Date: 05/09/2018 10:12 AM Date of : 1985 Age: 33 Procedure: ERCP Indications: Common bile duct stone(s) Providers: Damon Weinstein MD Medicines: General Anesthesia Patient Profile: This is a 33 year old female. Refer to note in patient chart for documentation of history and physical. Complications: No immediate complications. Estimated blood loss: Minimal. Procedure: Pre-Anesthesia Assessment: - Prior to the procedure, a History and Physical was performed, and patient medications and allergies were reviewed. The patient's tolerance of previous anesthesia was also reviewed. The risks and benefits of the procedure and the sedation options and risks were discussed with the patient. All questions were answered, and informed consent was obtained. Prior Anticoagulants: The patient has taken no previous anticoagulant or antiplatelet agents. After reviewing the risks and benefits, the patient was deemed in satisfactory condition to undergo the procedure. After obtaining informed consent, the scope was passed under direct vision. Throughout the procedure, the patient's blood pressure, pulse, and oxygen saturations were monitored continuously. The [id number] endoscope was introduced through the mouth, and advanced to the duodenum and used to inject contrast into the bile duct. The ERCP was accomplished without difficulty. The patient tolerated the procedure well. Scope In: 11:01:04 AM Scope Out: 11:41:27 AM Total Procedure Duration Time 0 hours 40 minutes 23 seconds Findings: A 0.035 inch x 260 cm straight Dreamwire was passed into the biliary tree. The sphincterotome was passed over the guidewire and the bile duct was then deeply cannulated. Contrast was injected. I personally interpreted the bile duct images. There was brisk flow of contrast through the ducts. The lower third of the main bile duct contained one stone mm. The main bile duct was dilated. Biliary sphincterotomy was made with a monofilament sphincterotome using ERBE electrocautery. The sphincterotomy oozed minimal blood. To discover objects, the biliary tree was swept with a 12 mm balloon starting at the bifurcation. Pus was swept from the duct. One large stone was identified. The biliary tree was swept with a basket starting at the bifurcation. Debris was swept from the duct. The large stone appeared to be broken up by the basket. Several small fragments of stone were removed. As the duct may still contain debris and pus a stent was placed. One 10 Fr by 5 cm plastic stent with a single external flap and a single internal flap was placed into the common bile duct. Bile flowed through the stent. The stent was in good position. The endoscope was withdrawn from the patient. Impression: - The entire main bile duct was dilated. - Choledocholithiasis was found. Partial removal was accomplished with biliary sphincterotomy; a stent was inserted. - A biliary sphincterotomy was performed. - The biliary tree was swept and pus was found. - The biliary tree was swept and debris was found. - One plastic stent was placed into the common bile duct. Recommendation: - Clear liquid diet. - [facility] patient to [facility] for [facility] care. Procedure Code(s): --- Professional --- 82203, Endoscopic retrograde cholangiopancreatography (ERCP); with placement of endoscopic stent into biliary or pancreatic duct, including pre- and post-dilation and guide wire passage, when performed, including sphincterotomy, when performed, each stent [id number], 51, Endoscopic retrograde cholangiopancreatography (ERCP); with removal of calculi/debris from biliary/pancreatic duct(s) Diagnosis Code(s): --- Professional --- K80.50, Calculus of bile duct without cholangitis or cholecystitis without obstruction K83.8, Other specified diseases of biliary tract CPT copyright 2017 [employer]. All rights reserved. The codes documented in this report are preliminary and upon medical coder review may be revised to meet current compliance requirements. Damon Weinstein MD 05/09/2018 11:58:36 AM This report has been signed electronically. Number of Addenda: 0 Note Initiated On: 05/09/2018 10:12 AM
== END 2018-05-10 15:11 | disposition home or self-care (01) | DRG 419 ==
LOC: ED 17:10 → MS2 18:09
PROVIDERS: Anesthesiology; Admitting Provider Surgery; Emergency Provider Emergency Medicine; Visit Provider Surgery
PROC: 0FC98ZZ Extirpation of Matter from Common Bile Duct, Via Natural or Artificial Opening Endoscopic (ICD-10-PCS; CPT 43260; principal; 2018-05-09 10:30)
PROC: 0FT44ZZ Resection of Gallbladder, Percutaneous Endoscopic Approach (ICD-10-PCS; CPT 47610; principal; 2018-05-10 07:10)
DX: K80.43 Calculus of bile duct with acute cholecystitis with obstruction (principal)
CPT/HCPCS: 36415; 74300; 74328; 76000; 76705; 80053; 81025; 83605; 83690; 85025; 88304; 99282; J7030; A4216; J2405

== ENCOUNTER 2018-06-14 07:05 | Day surgery (SDC) | payer OTHER, SELFPAY ==
[2018-05-10 04:55] VITALS: BMI 27.1
[2018-06-14] VITALS (7 sets, daily range): BP systolic 115–135; BP diastolic 74–90; PULSE 56–97; RESP 16–18; TEMP 36.4–37.5; O2SAT 100; BMI 26.6
[2018-06-14 07:31] LABS: Internal QC Validated? YES +Cl - CLEAR BKGD; Pregnancy, Urine Negative Negative
--- NOTE | 2018-06-14 07:47 | PCM.HP.STD ---
Problem List (1) Cholangitis Status: Acute History of Present Illness Date of Admission: 06/14/18 The patient is a 33 year old F who was recently admitted with cholecystitis and cholangitis. The patient had a large stone removed from her common bile duct as well as purulent material. She had a stent placed. She is here today for stent removal. She reports she is doing well with no abdominal pain. Past Medical History Medical History: Medical History (Last Reviewed 05/24/18 @ 12:54 by Josseline Schuster) Acute cholecystitis (Acute) K81.0 Cholangitis (Acute) K83.09 Obstructive jaundice (Acute) K83.8 Cholelithiasis (Acute) K80.20 Allergies No Known Allergies Allergy (Verified 06/12/18 11:02) Home Medications: Ambulatory Orders Medication Instructions Recorded Norethindrone-E.estradiol-Iron 1 tab PO DAILY 05/08/18 [Tri-Legest Fe-28 Day Tablet] Surgical History: Surgical History (Last Reviewed 05/24/18 @ 12:53 by Josseline Schuster) S/P ERCP Z98.890 s/p partial lap cholecystectomy 2018 Surgical History: - - and open appendectomy, cholecystectomy, ERCP with stent placement Smoking Status: Never smoker Tobacco Use: Non-smoker - *Family History Maternal History Items: - - Gallbladder issues Review of Systems Constitutional: Denies: Anorexia, Fever HEENT: Denies: Difficulty Swallowing Cardiovascular: Denies: Chest Pain Respiratory: Denies: Cough, Shortness of Breath Gastrointestinal: Denies: Abdominal Pain Genitourinary: Denies: Dysuria Skin: Denies: Jaundice Psychiatric: Denies: Anxiety, Depression VTE Information - Inpt Only VTE Present on Admission: No VTE Mechan Device Prophylaxis: SCD's - Physical Exam General: Alert, Oriented x3, Cooperative HEENT: Atraumatic, PERRLA, EOMI, Normocephalic Neck: No JVD Lungs: Normal air movement Cardiovascular: Regular rate, Regular Rhythm Abdomen: Soft, Non Tender, Non-Distended Body Mass Index (BMI) 27.1 Laboratory Tests Past 24 Hrs 06/14/18 07:15 Urine Test Negative Assessment/Plan All Active Problems (Last Reviewed 05/24/18 @ 12:54 by Josseline Schuster) Acute cholecystitis (Acute) Cholangitis (Acute) Obstructive jaundice (Acute) Cholelithiasis (Acute) 33-year-old female here for stent removal 1. The patient has a history of choledocholithiasis as well as cholangitis. She is here today for stent removal. 2. Procedure was expanded the patient as well as risks including but not limited to bleeding, infection, perforation of the bowel or bile duct, pancreatitis. The patient understands all the risks and is willing to proceed with surgery. Damon Weinstein MD Pager: [facility] [address] [place] [address] Office:
--- NOTE | 2018-06-14 07:50 | HP.PCM_ITS ---
Problem List (1) Cholangitis Status: Acute History of Present Illness Date of Admission: 06/14/18 The patient is a 33 year old F who was recently admitted with cholecystitis and cholangitis. The patient had a large stone removed from her common bile duct as well as purulent material. She had a stent placed. She is here today for stent removal. She reports she is doing well with no abdominal pain. Past Medical History Medical History: Medical History (Last Reviewed 05/24/18 @ 12:54 by Josseline Schuster) Acute cholecystitis (Acute) K81.0 Cholangitis (Acute) K83.09 Obstructive jaundice (Acute) K83.8 Cholelithiasis (Acute) K80.20 Allergies No Known Allergies Allergy (Verified 06/12/18 11:02) Home Medications: Ambulatory Orders Medication Instructions Recorded Norethindrone-E.estradiol-Iron 1 tab PO DAILY 05/08/18 [Tri-Legest Fe-28 Day Tablet] Surgical History: Surgical History (Last Reviewed 05/24/18 @ 12:53 by Josselnie Schuster) S/P ERCP Z98.890 s/p partial lap cholecystectomy 2018 Surgical History: - - and open appendectomy, cholecystectomy, ERCP with stent placement Smoking Status: Never smoker Tobacco Use: Non-smoker - *Family History Maternal History Items: - - Gallbladder issues Review of Systems Constitutional: Denies: Anorexia, Fever HEENT: Denies: Difficulty Swallowing Cardiovascular: Denies: Chest Pain Respiratory: Denies: Cough, Shortness of Breath Gastrointestinal: Denies: Abdominal Pain Genitourinary: Denies: Dysuria Skin: Denies: Jaundice Psychiatric: Denies: Anxiety, Depression VTE Information - Inpt Only VTE Present on Admission: No VTE Mechan Device Prophylaxis: SCD's - Physical Exam General: Alert, Oriented x3, Cooperative HEENT: Atraumatic, PERRLA, EOMI, Normocephalic Neck: No JVD Lungs: Normal air movement Cardiovascular: Regular rate, Regular Rhythm Abdomen: Soft, Non Tender, Non-Distended Body Mass Index (BMI) 27.1 Laboratory Tests Past 24 Hrs 06/14/18 07:15 Urine Test Negative Assessment/Plan All Active Problems (Last Reviewed 05/24/18 @ 12:54 by Josseline Schuster) Acute cholecystitis (Acute) Cholangitis (Acute) Obstructive jaundice (Acute) Cholelithiasis (Acute) 33-year-old female here for stent removal 1. The patient has a history of choledocholithiasis as well as cholangitis. She is here today for stent removal. 2. Procedure was expanded the patient as well as risks including but not limited to bleeding, infection, perforation of the bowel or bile duct, pancreatitis. The patient understands all the risks and is willing to proceed with surgery. Damon Weinstein MD Pager: [facility] [address] [place] [address] Office:
--- NOTE | 2018-06-14 08:00 | RAD_ITS ---
STUDY: ERCP. REASON FOR EXAM: Female, 33 years old. Obstructive jaundice. FLUOROSCOPY TIME (if supplied): (0:34) minutes/seconds TECHNIQUE: Limited visualization of the common bile duct. COMPARISON: None. FINDINGS: Limited visualization of the common bile duct. RAD/ERCP Biliary Only IMPRESSION: Limited visualization of the common bile. Duct. Electronically Signed: Sunday Cuevas MD at 15:44 EST , Service support ,
--- NOTE | 2018-06-14 08:29 | OP.ENDO_ITS ---
Patient Name: Emily Berg Procedure Date: 06/14/2018 7:31 AM Date of : 1985 Age: 33 Procedure: ERCP Indications: Biliary stent removal Providers: Damon Weinstein MD Medicines: General Anesthesia Patient Profile: This is a 33 year old female. Refer to note in patient chart for documentation of history and physical. Complications: No immediate complications. Estimated blood loss: Minimal. Procedure: Pre-Anesthesia Assessment: - Prior to the procedure, a History and Physical was performed, and patient medications and allergies were reviewed. The patient's tolerance of previous anesthesia was also reviewed. The risks and benefits of the procedure and the sedation options and risks were discussed with the patient. All questions were answered, and informed consent was obtained. Prior Anticoagulants: The patient has taken no previous anticoagulant or antiplatelet agents. After reviewing the risks and benefits, the patient was deemed in satisfactory condition to undergo the procedure. After obtaining informed consent, the scope was passed under direct vision. Throughout the procedure, the patient's blood pressure, pulse, and oxygen saturations were monitored continuously. The [id number]/n [id number] endoscope was introduced through the mouth, and advanced to the duodenum and used to cannulate the bile duct. The ERCP was accomplished without difficulty. The patient tolerated the procedure well. Scope In: 8:15:00 AM Scope Out: 8:20:17 AM Total Procedure Duration Time 0 hours 5 minutes 17 seconds Findings: One stent was removed from the biliary tree using a snare. A 0.035 inch x 260 cm straight Dreamwire was passed into the biliary tree. The bile duct was then deeply cannulated over the guidewire. Contrast was injected. Opacification of the hepatic duct bifurcation was successful. The biliary tree was swept with a 12 mm balloon starting at the bifurcation. The endoscope was withdrawn from the patient. Impression: - One stent was removed from the biliary tree. - The biliary tree was swept and nothing was found. Recommendation: - Discharge patient to home. Procedure Code(s): --- Professional --- 56514, Endoscopic retrograde cholangiopancreatography (ERCP); with removal of foreign body(s) or stent(s) from biliary/pancreatic duct(s) Diagnosis Code(s): --- Professional --- Z46.59, Encounter for fitting and adjustment of other gastrointestinal appliance and device CPT copyright 2017 [employer]. All rights reserved. The codes documented in this report are preliminary and upon locum tenens review may be revised to meet current compliance requirements. Damon Weinstein MD 06/14/2018 8:28:45 AM This report has been signed electronically. Number of Addenda: 0 Note Initiated On: 06/14/2018 7:31 AM
== END 2018-06-14 10:05 | disposition home or self-care (01) ==
LOC: EN 07:07 → AC 07:08
PROVIDERS: Anesthesiology; Referring Provider Surgery; Visit Provider Surgery
PROC: (CPT 43260; principal; 2018-06-14 07:30)
DX: Z46.59 Encounter for fitting and adjustment of other gastrointestinal appliance and device (principal); K80.10 Calculus of gallbladder with chronic cholecystitis without obstruction
CPT/HCPCS: 43275; 74328; 76000; 81025; J7120; J2405

== ENCOUNTER → 2019-06-11 13:27 | Outpatient (CLI) | payer BC, SELFPAY ==
[2018-06-14 07:44] VITALS: BMI 26.6
== END ==
PROVIDERS: Visit Provider Obstetrics & Gynecology
DX: Z36.85 Encounter for antenatal screening for Streptococcus B (principal)
CPT/HCPCS: 87081

== ENCOUNTER 2019-07-02 05:24 | Inpatient (IN) | payer BC, SELFPAY ==
[2018-06-14 07:44] VITALS: BMI 26.6
[2019-07-02] VITALS (19 sets, daily range): BP systolic 99–127; BP diastolic 53–80; PULSE 75–94; RESP 14–18; TEMP 36.1–37.1; O2SAT 94–100; BMI 33.5
[2019-07-02] MEDS: Lactated Ringers 1,000 ML 999 ML IV (05:45)
[2019-07-02 06:09] LABS: Absolute Lymphocyte Count 1.92 X10^3/uL (0.83-4.51); Absolute Neutrophil Count 5.5 X10^3/uL (2.0-7.7); Basophil# 0.01 X10^3/uL; Basophil% 0.1 % (0-1); Eosinophil# 0.09 X10^3/uL; Eosinophils% 1.1 % (0-5); Lymphocyte # 1.92 X10^3/ul (4.0); Lymphocyte % 23.5 % (19-41); Mean Corp Hgb Conc 33.3 g/dL (32-36); Mean Corpuscular Hgb 30.1 pg (27.0-32.0); Mean Corpuscular Volume 90.2 fL (81-99); Mean Platelet Vol. 9.9 fl (6.2-12.0); Monocyte# 0.66 X10^3/uL; Monocyte% 8.1 % (0-10); NRBC Flagged by Analyzer 0 % (0-5); Neutrophil # 5.46 X10^3/uL (2.7-7.7); Neutrophil % 66.7 % (47-70); Platelet Count 213 K/mm3 (150-450); RBC Distribution Width CV 13.2 % (11.6-14.6); RBC Distribution Width SD 43.4 fl (35.1-43.9); Red Blood Count 3.99 M/mm3 (4.2-5.4); White Blood Count 8.2 K/mm3 (4.4-11.0)
--- NOTE | 2019-07-02 07:16 | HP.PCM_ITS ---
History and Physical Date of Admission: 07/02/19 ACOG ANTEPARTUM RECORD - HISTORY AND PHYSICAL (07/02/2019) Name: OTISEMILY History of This : This is a 34-year-old 2 para 1 who presents for repeat at 39 weeks gestation. care has been uneventful otherwise. OB Physician: BRITTA 's Physician: Helder ...................................................................... : 1985 Age: 34 Address: [address] [place] [address] Phone: ([phone] Insurance Carrier: [facility] [employer] [facility] [id number] Emergency Contact: PHILLIP CASTELLON [phone] ...................................................................... Final HONG: 07/09/19 By Ultrasound: 12 weeks 2 days PARITY: (G-Total Pregnancies P-Fullterm,Premature,Induced AB,Spont AB, Ectopics, Multiple,Living) HONG CONFIRMATION: By LMP: 10/02/18 Initial Exam: 07/09/19 Final HONG: 07/09/19 OB PROBLEM LIST: BOY CF mutation neg - 01/2016 has first cousin with CF FOB's brother with spina bifida feeding method undecided msAFP declined Prior C/S, plans repeat C/S ALLERGIES: No Known Allergies No Known Drug Allergies MEDICATIONS: Diclegis 10 mg-10 mg tablet,delayed release One tablet by mouth in the morning, One in the afternoon and 2 at bedtime as needed for nausea 28 mg-800 mcg tablet terconazole 0.4 % vaginal cream 1 applicatorful vaginally qhs x 7 days Vitamin D3 5,000 unit tablet 1 daily SOCIAL HISTORY: Smoking - Never Alcohol Use - denies drinking Diet - moderate, balanced diet Lifestyle - Exercise - active Employer - [employer] and Job Description - server administrator Illicit Drug Use - denies use of street drugs Sexual Activity - single sexual partner Residence - lives with Place of - [place], [place] Hours Worked - 40 hours per week Spouse-Sig Other Name - Hpillip Otis Spouse-Sig Other Occupation - [employer] Spouse-Sig Other Phone No - [phone] Children Name(s) - Marck(17) PRIOR DELIVERY HISTORY DEL DATE GEST LAB WT LB WT OZ TYPE ANES LABOR TX 13 September 07 40 18 7 0 C-Sec Epidural No ANTEPARTUM FLOW CHART VISIT GE RTC FU F F CA U U DATE WK MD WKS HT PN HR M SS BP ED WT CA GL D EF ST __ ____ ___ __ __ ___ __ __ __ ___ __ __ __ ___ __ 03 Jun 38 SHM 1 37 V + + 116/72 1+ 187 tr - May 37 SHM 1 36 V + + 124/80 0 184 - - May 36 SHM 1 35 V + + 124/80 0 182 - - May 34 SHM 2 34 + + 100/60 0 185 - - Apr KW 2 32 + + 110/70 0 184 - - May 23 KW 2 30 + + 132/62 0 179 tr - Apr 20 SHM 2 28 ? + + 130/70 sl 180 - tr Mar 17 SHM 4 24 ? + + 128/88 0 176 tr - Feb 10 KW 4 [address] US 112/78 0 171 - - Feb 06 SHM 4 16 + ? 138/82 0 164 - - Jan 03 SHM 4 on - 130/82 0 161 - - ANTEPARTUM NOTE(S): Jun 24 2020: see note Jun 18 2020: Jun 11 2020: see note May 29 2020: May 16 2019: feeling well. May 03 2019: feeling well Apr 19 2019: feeling well. Glucola drawn. Mar 19 2019: doing well, glucola inst provided and reviewed Feb 19 2019: feeling well. Jan 24 2019: occ nausea, declines AFP Dec 27 2019: NOB and u/s today, feeling better COMPREHENSIVE ANTEPARTUM NOTE(S): Jun 25 2019: Emily is here for a PNV and preop appt. is scheduled for 07/02/2019. consents reviewed and signed. SL edema in feet. Good FM. No complaints or concerns at this time. MK Jun 21 2019: H taken to OB. tkg Jun 18 2019: Emily is here for a PNV. She is 37 weeks and doing good. No edema. Feeling good FM. No complaints at this time. Scheduled in approximately 2 weeks. Urine - -. MK Jun 11 2019: Emily is here for a appt. She is 36 wks exactly. GBS due today, consents signed. She is feeling well and baby boy is moving good. No edema. Urine --.MK Jun 11 2019: PTL, ROM, FM precautions. GBS obtained. May 29 2019: Discussed C/S preparations May 16 2019: Feeling well; reports active FM; denies UCs, VB, LOF; discussed warning signs, s/s PTL; RTO 2 weeks for PNV - KVW May 03 2019: Feeling well; reports active FM; denies UCs, VB, LOF; discussed warning signs, s/s PTL; RTO 2 weeks for PNV - KVW Apr 19 2019: PTL, ROM, FM precautions. Discussed PPBC, consider LARC. Feb 19 2019: Feeling well; reports active FM; denies UCs, VB, LOF; comprehensive US done today, discussed findings, (It's a BOY!), anterior placenta; discussed warning signs, s/s PTL; RTO 4 weeks for PNV w/SMH - KVW Dec 27 2018: Emily is here for her NOB visit at 12 w 2 d, she is a with an HONG of 07/09/2019. , Phillip, accompanies her today and he seems supportive. They have a daughter at home, who was delivered by C/S at [facility] following 3 hr second stage. Past history updated. Repeat C?S at [facility] is planned and she is undecided about feeding method. Emily states that she had daily nausea, no emesis, but feels that this is improving a little. She takes Diclegis and states that this helps with the nausea. Encouraged small frequent meals with protein included throughout the day and adequate water hydration of at least 1 gallon per 24 hours. She takes a gummy OTC vitamin containing DHA most days. Office practice patterns reviewed, including labs that will be collected today. Emergencies/danger signs to report, round ligament pain, reporting s/s of a UTI, and common OTC medications approved/not approved for use during reviewed. Emily is a life long non-smoker, and she denies use of drugs or ETOH. Genetic Screening form completed, Phillip had a brother who within one week of who had Spina Bifida, and he has a cousin with CF. Emily declines msAFP, and CF testing was performed during her first ; consent signed as such. Denies history of depression or anxiety. EPDS = 0 today. Emily keeps active with her daughter; taking several walks a week for 30 minutes encouraged. Lifting restrictions discussed. Water and dietary needs reinforced, including caloric needs, recommended weight gain, limiting caffeine to one cup a day, and limiting empty calories. Printed guide for food safety during provided with discussion. Emily states that she understands all information provided during NOB visit, and has no questions following same. AW New Nov 23 2018: Emily is here today for missed menses appointment. Patient is a . Positive upt in office today. Patient states that lmp is 10/02/2018 making her 7wk 3d with Hong of 07/08/2018. Patient states that she has had no bleeding or spotting since lmp. She has mild nausea that she feels is tolerable states that she started with probiotic and feels that has helped she used diclegis in previous but states that she will try the vitamin B6 with Unisom and call the office if script is needed for nausea. Patient has h/o normal pap's with most recent pap in 2016. Patient due for pap at today's visit and Gc/Ct cultures. Educational materials provided and reviewed with patient. jlb Nov 23 2018: as above. m REVIEW OF SYSTEMS: GENERAL - Denies fever, or chills SKIN - Denies rash, new skin lesions, or change in moles EYES - Denies blurred vision, or change in visual acuity EARS - Denies ear pain, or difficulty hearing NOSE - Denies nasal congestion, discharge, or bleeding MOUTH - Denies sore throat, or difficulty swallowing NECK - Denies pain or swelling RESPIRATORY - Denies shortness of breath, cough, wheezing CARDIOVASCULAR - Denies palpitations, chest pain, orthopnea, PND, peripheral edema, syncope or claudication GASTROINTESTINAL - Denies nausea, vomiting, diarrhea, constipation, Denies abdominal pain, melena and or bright red blood GENITOURINARY - Denies dysuria, frequency of urination, urgency, or hesitancy MUSCULOSKELETAL - Denies joint or muscle pain, or back pain NEUROLOGICAL - Denies localized numbness, weakness, or tingling PSYCHIATRIC - Denies depression, anxiety, substance abuse or suicide attempts ENDOCRINE - Denies heat or cold intolerance, weight loss or gain, increasing thirst HEMATO-IMMUNOLOGIC - Denies easy bruising, bleeding, oral ulcerations or recurrent infections GENETICS SCREENING: Age 35+ years: No Thalassemia: No Neural Tube Defect: Yes, FOB brother Down Syndrome: No NEENA-SACHS: No Sickle Cell Disease: No Hemophilia: No Musc. Dystrophy: No Cystic Fibrosis: + FAMILY HX SCREENING DONE Josh Chorea: No Mental Retardation: Yes, pt uncle Fragile X: No Other genetic: No Other defects: No SABs/still births: No Drugs since LMP: No INFECTION HISTORY: High risk AIDS: No High risk Hepatitis: No Exposed to TB: No Exposed to Herpes: No Rash/viral illness since LMP: No History of STD: No MENSTRUAL HISTORY: *Menses Amount/Duration: 7 daysMenses Regularity: regularFrequency: monthlyMenarche (Age Onset): 16* PAST SUMMARY: PARITY: 1. Total Pregnancies............ 2 2. Full Term Pregnancies........ 1 3. Premature.................... 0 4. Abortions - Induced.......... 0 5. Abortions - Spontaneous...... 0 6. Ectopics..................... 0 7. Multiple Births.............. 0 8. Living Children.............. 1 PAST #1: Date of :.................. 09/03/16 Gestation Weeks:................ 40 Length of labor(hours):......... 18 Sex:............................ F Weight-lbs:............... 7 Weight-oz:................ 0 Type of Delivery:............... C-Sect Type of Anesthesia:............. Epidural Place of Delivery:.............. [facility] Treatment of Labor?:.... No Comment: IOL, 3 H 2ND STAGE, C/S PHYSICAL EXAMINATION General Appearence: 34 yo female in no acute distress Vital Signs: AF, VSS Heart: RRR without rubs or gallops Lungs: CTA x 2 Breasts: deferred Abdomen: gravid Pelvis: Cervix: Presentation: cephalic Station: Fetus: Size: AGA Movement: present Heart: present Labs for : EMILY CASTELLON since 10/12/2018 ORDER DATEIN DESCRIPTION VALUE UNITS RANGE A+ COMMENT CBC W/DIFF, AUTOMATED 07/02/19 NOTE Original Ordering Provider: Arturo Gallardo WBC 8.2 K/mm3 4.4-11.0 RBC 3.99 M/mm3 4.2-5.4 L HGB 12.0 g/dL 12.0-15.0 HCT 36.0 % 37-47 L MCV 90.2 fL 81-99 MCH 30.1 pg 27.0-32.0 MCHC 33.3 g/dL 32-36 RDW CV 13.2 % 11.6-14.6 RDW SD 43.4 fl 35.1-43.9 PLT 213 K/mm3 150-450 MPV 9.9 fl 6.2-12.0 NEUT% 66.7 % 47-70 LY% 23.5 % 19-41 MONO% 8.1 % 0-10 EO% 1.1 % 0-5 BASO% 0.1 % 0-1 IM GRAN % 0.500 % 0.0-0.9 IG% - Immature Granulocytes (promyelocytes, myelocytes and metamyelocytes) > 1% indicates that a LEFT SHIFT is Present. ABSOLUTE NEUT 5.5 X10 3/uL 2.0-7.7 ABSOLUTE LYMPH 1.92 X10 3/uL 0.83-4.51 NRBC, FLAGGED 0 % 0-5 CULTURE, GROUP B STREPTOCOCCUS 06/11/19 NOTE Original Ordering Provider: Ernestine Leiva Comments: VAGINAL/RECTAL NEETA Culture Group B Beta Streptococcus is not isolated. Reviewed by ELIN sweet VITAMIN D, 25-HYDROXY 04/19/19 VITAMIN D, 25-HYDROXY 27.6 ng/mL 30.0-100.0 L Vitamin D deficiency has been defined by the [place] [employer] and an Endocrine Society practice guideline as a level of serum 25-OH vitamin D less than 20 ng/mL (1,2). The Endocrine Society went on to further define vitamin D insufficiency as a level between 21 and 29 ng/mL (2). 1. IOM ([place] [employer]). 2010. Dietary reference intakes for calcium and D. [place]: The National Academies Press. 2. Fartun MF, Sue VIRGEN, Bernadette LOGAN, et al. Evaluation, treatment, and prevention of vitamin D deficiency: an Endocrine Society clinical practice guideline. JCEM. 2010; 96(7):1911-30. GEST. DIABETES 1-HR SCREEN 04/19/19 GESTATIONAL DIABETES SCREEN 117 mg/dL 65-139 According to ADA, a glucose threshold of >139 mg/dL after 50-gram load identifies approximately 80% of women with gestational diabetes mellitus, while the sensitivity is further increased to approximately 90% by a threshold of >129 mg/dL. CBC WITH DIFFERENTIAL/PLATELET 04/19/19 WBC 7.3 x10E3/uL 3.4-10.8 RBC 3.94 x10E6/uL 3.77-5.28 HEMOGLOBIN 11.8 g/dL 11.1-15.9 HEMATOCRIT 35.6 % 34.0-46.6 MCV 90 fL 79-97 MCH 29.9 pg 26.6-33.0 MCHC 33.1 g/dL 31.5-35.7 RDW 13.5 % 12.3-15.4 Effective April 29, 2019, the RDW pediatric reference interval will be removed and the adult reference interval will be changing to: Female 11.7 - 15.4 Male 11.6 - 15.4 PLATELETS 265 x10E3/uL 150-450 NEUTROPHILS 78 % Not Estab. LYMPHS 16 % Not Estab. w MONOCYTES 5 % Not Estab. EOS 1 % Not Estab. BASOS 0 % Not Estab. IMMATURE CELLS NEUTROPHILS (ABSOLUTE) 5.6 x10E3/uL 1.4-7.0 LYMPHS (ABSOLUTE) 1.2 x10E3/uL 0.7-3.1 MONOCYTES(ABSOLUTE) 0.4 x10E3/uL 0.1-0.9 EOS (ABSOLUTE) 0.1 x10E3/uL 0.0-0.4 BASO (ABSOLUTE) 0.0 x10E3/uL 0.0-0.2 IMMATURE GRANULOCYTES 0 % Not Estab. IMMATURE GRANS (ABS) 0.0 x10E3/uL 0.0-0.1 NRBC HEMATOLOGY COMMENTS: Reviewed by PASTOR NOEL 12/27/18 VITAMIN D, 25-HYDROXY 27.3 ng/mL 30.0-100.0 L Vitamin D deficiency has been defined by the [place] [employer] and an Endocrine Society practice guideline as a level of serum 25-OH vitamin D less than 20 ng/mL (1,2). The Endocrine Society went on to further define vitamin D insufficiency as a level between 21 and 29 ng/mL (2). 1. IOM ([place] [employer]). 2010. Dietary reference intakes for calcium and D. [place]: The National Academies Press. 2. Fartun MF, Sue VIRGEN, Bernadette LOGAN, et al. Evaluation, treatment, and prevention of vitamin D deficiency: an Endocrine Society clinical practice guideline. JCEM. 2010; 96(7):1911-30. NTI URINE TUBE (MELGAR) 12/27/18 NTI URINE TUBE (MELGAR) NTI Test not indicated A urine culture transport was received with no test indicated. If testing is required on this specimen, please contact the [facility] Client Inquiry/Technical Services Department to obtain a Request for Written Authorization Form. HCV ANTIBODY 12/27/18 HEP C VIRUS AB <0.1 s/co ratio 0.0-0.9 Negative: < 0.8 Indeterminate: 0.8 - 0.9 Positive: > 0.9 . The CDC recommends that a positive HCV antibody result be followed up with a HCV Nucleic Acid Amplification test (433119). CBC/D/PLT+RPR+UA+RH+ABO+RUB... 12/27/18 TSH 0.786 uIU/mL 0.450-4.500 HBSAG SCREEN Negative Negative RPR Non Reactive Non Reactive RUBELLA ANTIBODIES, IGG 2.31 index Immune >0.99 Non-immune <0.90 Equivocal 0.90 - 0.99 Immune >0.99 ABO GROUPING A RH FACTOR Positive Please note: Prior records for this patient's ABO / Rh type are not available for additional verification. ANTIBODY SCREEN Negative Negative HIV SCREEN 4TH GENERATION WRFX Non Reactive Non Reactive WBC 7.5 x10E3/uL 3.4-10.8 RBC 4.42 x10E6/uL 3.77-5.28 HEMOGLOBIN 13.4 g/dL 11.1-15.9 HEMATOCRIT 39.2 % 34.0-46.6 MCV 89 fL 79-97 MCH 30.3 pg 26.6-33.0 MCHC 34.2 g/dL 31.5-35.7 RDW 13.6 % 12.3-15.4 PLATELETS 330 x10E3/uL 150-450 NEUTROPHILS 65 % Not Estab. LYMPHS 27 % Not Estab. MONOCYTES 6 % Not Estab. EOS 2 % Not Estab. BASOS 0 % Not Estab. IMMATURE CELLS NEUTROPHILS (ABSOLUTE) 4.9 x10E3/uL 1.4-7.0 LYMPHS (ABSOLUTE) 2.1 x10E3/uL 0.7-3.1 MONOCYTES(ABSOLUTE) 0.4 x10E3/uL 0.1-0.9 EOS (ABSOLUTE) 0.1 x10E3/uL 0.0-0.4 BASO (ABSOLUTE) 0.0 x10E3/uL 0.0-0.2 IMMATURE GRANULOCYTES 0 % Not Estab. IMMATURE GRANS (ABS) 0.0 x10E3/uL 0.0-0.1 NRBC HEMATOLOGY COMMENTS: SPECIFIC GRAVITY 1.011 1.005-1.030 PH 6.5 5.0-7.5 URINE-COLOR Yellow Yellow APPEARANCE Clear Clear WBC ESTERASE Negative Negative PROTEIN Negative Negative/Trace GLUCOSE Negative Negative KETONES Negative Negative OCCULT BLOOD Negative Negative BILIRUBIN Negative Negative UROBILINOGEN,SEMI-QN 0.2 mg/dL 0.2-1.0 NITRITE, URINE Negative Negative MICROSCOPIC EXAMINATION Microscopic not indicated and not performed. [id number] 7+ALC-UNBUND 12/27/18 AMPHETAMINES, URINE Negative ng/mL Wnrfpc=3890 Amphetamine test includes Amphetamine and Methamphetamine. BARBITURATE Negative ng/mL Sayuai=908 BENZODIAZEPINES Negative ng/mL Kcgjho=081 CANNABINOID Negative ng/mL Cutoff=50 COCAINE (METAB.) Negative ng/mL Xdmduu=435 OPIATES Negative ng/mL Hjtoda=702 Opiate test includes Codeine and Morphine only. PHENCYCLIDINE Negative ng/mL Cutoff=25 ETHANOL, URINE Negative % Cutoff=0.020 Reviewed by ERNESTINE IGP, APTIMA HPV, RFX 16/18,45 11/23/18 DIAGNOSIS: NEGATIVE FOR INTRAEPITHELIAL LESION OR MALIGNANCY. SPECIMEN ADEQUACY: Satisfactory for evaluation. No endocervical component is identified. An endocervical component is not commonly seen in the patient. CLINICIAN PROVIDED ICD10: Z12.4 Z11.3 Z32.01 PERFORMED BY: Marisela House, Account Development Manager (ASCP) . . NOTE: The Pap smear is a screening test designed to aid in the detection of premalignant and malignant conditions of the uterine cervix. It is not a diagnostic procedure and should not be used as the sole means of detecting cervical cancer. Both false-positive and false-negative reports do occur. . TEST METHODOLOGY: This liquid based ThinPrep(R) pap test was screened with the use of an image guided system. HPV APTIMA Negative Negative This test detects fourteen high-risk HPV types (16/18/31/33/35/39/45/ 51/52/56/58/59/66/68) without differentiation. Source.............Cervix;Endocervix No. of containers..01 ThinPrep Vial No. of containers..01 Aptima Vaginal Swab ([place] Label) CHLAMYDIA/GC AMPLIFICATION 11/23/18 CHLAMYDIA TRACHOMATIS, KEVIN Negative Negative NEISSERIA GONORRHOEAE, KEVIN Negative Negative Reviewed by ERNESTINE Impression /Plan: 39-week intrauterine for repeat . Preparations in progress for delivery.
[2019-07-02] MEDS: Sodium Citrate/Citric Acid 30 ML UDC PO (07:17)
--- NOTE | 2019-07-02 07:23 | PCM.OPRPT ---
Delivery Classification: Scheduled Final HONG: 07/09/19 Final HONG Source: US <20 weeks Gestational age: 39 Weeks and 0 Days transition assistant: Celestina Oliver Type of Anesthesia:: Spinal - With Duramorph Implants Used: None Date of Procedure: 07/02/19 Pre-Operative Diagnosis: Prior Section Post-Operative Diagnosis: Prior Section Description of Procedure: Surgeon: Arturo Gallardo MD, FACOG Anesthesia: Zonia Mckeon MD Procedure: Repeat Low Transverse Cervical Caesarean Section Findings: Viable male with Apgars of 8/9 in occiput anterior presentation with clear amniotic fluid and normal three-vessel placenta. Indication: This is a 34-year-old who presents for her second at 39+ weeks gestation. care has otherwise been uneventful. The patient has been counseled regarding the risk and indications of this procedure including the possibility of bleeding infection and injury to surrounding structures such as bowel bladder. All questions were answered. Procedure: Patient was taken to the operating room where after spinal anesthesia was placed, the patient was prepped and draped in usual sterile fashion and a Glass catheter was placed. The abdomen was entered through the patient's prior Pfannenstiel incision and peritoneum was entered bluntly. After developing a bladder flap on the lower uterine segment a low transverse incision was made on the uterus and head was easily delivered onto the operative field the nose mouth and oropharynx were bulb suctioned. Subsequently a viable male was born with Apgars of 8/9. The infant was noted to cry move all extremities vigorously on the operative field. The umbilical cord was doubly clamped and ligated and handed to the nursery personnel who were present for the delivery. Placenta was delivered and noted to be 3 vessels and normal. Uterus was exteriorized and remaining placental tissue was removed. The uterus was then closed in 2 layers first with running locked 0 Vicryl suture followed by a second imbricating layer with 0 Vicryl suture. 0 Vicryl suture was then used in a horizontal mattress interrupted fashion to affect final hemostasis of the uterine incision line. Normal fallopian tubes and ovaries were visualized and the uterus was returned to the pelvis. Hemostasis was noted and rectus abdominis muscles were reapproximated in the midline with interrupted Number 0 Vicryl suture in a horizontal mattress fashion. Fascia was closed with running Number 1 PDS Strata fix suture. Subcutaneous tissue was irrigated with copious amouts of saline solution and then closed with running 3-0 Vicryl suture. Skin was closed with 4-0 monocryl suture in a running subcuticular fashion. Steri strips and Mepilex dressing were placed across the incision. The patient tolerated the procedure well and was taken to the recovery room in satisfactory condition. Sponge, needle, and instrument counts were all reportedly correct. EBL was less than 500 cc. Ancef 2 gms IV was given prior to the procedure. Amniotic Fluid Description: Clear Placenta Disposition: [facility] Drain: Glass to straight drain Cord Entanglement: None Cord Vessel Description: 3 Vessels Esitmated Blood Loss (ml): 500 cc Gender: Male (1 minute): 8 (5 minute): 9 Antibiotic Given: Cefotan 2gm IV x1 Pt instructed on risks of surgery: Bleeding, Infection, Injury to surrounding structure(s) including bowel and bladder Complications: None - Admit VTE Documentation VTE Present on Admission: Yes VTE Mechan Device Prophylaxis: SCD's VTE Pharm Prophylaxis ordered?: Yes
[2019-07-02] MEDS: Cefazolin 2 GM in 0.9% Normal Saline 100 ML IV (07:25)
--- NOTE | 2019-07-02 08:44 | DCINST_ITS ---
<Arturo Gallardo - Last Filed: 07/02/19 08:44> Discharge Diet: No Restrictions Discharge Activity: May not drive while taking narcotic pain medications., May Shower, May Take a Tub Bath May resume sexual activity in: 4-6 weeks Lifting Restrictions: 20 pounds Additional Activity Instructions:: Nothing in the vagina for 4-6 weeks. You may return to work/school in 6 weeks. Call your doctor if your incision/area has: Continuous Slow Oozing, Sudden Increased Bleeding, Increased Pain/ Swelling, Increased Redness, Foul Smelling Discharge Call your doctor if you observe: Fever of 101 or Higher, Inability to urinate, Inability to have a bowel movement, Using more than one pad per hour Additional Instructions: If you experience any of the following, contact your healthcare provider. * Bleeding that soaks a pad every hour for 2 hours * Fever 100.4 or higher * Unrelieved incision or abdominal pain * Swelling, redness, discharge or bleeding from your incision or episiotomy site * Your incision begins to separate * Problems urinating (including inability to urinate or burning while urinating). * Visual changes * Severe headache * Flu-like symptoms * Pain or redness in one of both of your breasts * Pain, warmth, tenderness or swelling in your legs, especially the calf area * Frequent nausea and vomiting * Symptoms of depression or anxiety If you experience any of the following, call 911 or go to the nearest Emergency Room. * Chest pain * Problems breathing * Seizure activity * Partial or complete paralysis of a body part, slurred speech, weakness or drooping of the face, or a sudden inability to walk or hold your balance Allergies/Adverse Reactions: Allergies No Known Allergies Allergy (Verified 07/02/19 06:43) Medications to take at Discharge Docusate Sodium [Colace] 100 mg PO BID PRN PRN #60 cap 07/02/19 Famotidine [Pepcid] 40 mg PO DAILY 07/02/19 Oxycodone [Oxyir] 5 mg PO Q6H PRN PRN 7 Days #20 tab 07/02/19 Vits [Prenatabs FA ] 1 tab PO DAILY 07/02/19 The following prescriptions were given: Docusate Sodium [Colace] 100 mg PO BID PRN PRN #60 cap PRN Reason: Constipation Transmission Status: Sent to [facility] Oxycodone [Oxyir] 5 mg PO Q6H PRN PRN 7 Days #20 tab PRN Reason: Pain Score 6-10/10 Transmission Status: Sent to [facility] Follow-Up: Call to make an appointment with your doctor for an incision check in 1-2 weeks. You will also need a 6 week post- follow up appointment. Test results from this visit will be discussed in further detail at your follow- up appointment, if applicable. Please Follow Up With: Randi Leiva MD - [phone] When: Call to make an appointment for an incision check in 2 weeks. Primary Care Physician: Alyssa Pendleton, [Primary Care Provider] - <Lachelle Mcgee - Last Filed: 07/03/19 08:55> Remove Dressing in (days):: 1 - Keep steri strips intact until they fall off on their own Additional Instructions: If you experience any of the following, contact your healthcare provider. * Bleeding that soaks a pad every hour for 2 hours * Fever 100.4 or higher * Unrelieved incision or abdominal pain * Swelling, redness, discharge or bleeding from your incision or episiotomy site * Your incision begins to separate * Problems urinating (including inability to urinate or burning while urinating). * Visual changes * Severe headache * Flu-like symptoms * Pain or redness in one of both of your breasts * Pain, warmth, tenderness or swelling in your legs, especially the calf area * Frequent nausea and vomiting * Symptoms of depression or anxiety If you experience any of the following, call 911 or go to the nearest Emergency Room. * Chest pain * Problems breathing * Seizure activity * Partial or complete paralysis of a body part, slurred speech, weakness or drooping of the face, or a sudden inability to walk or hold your balance Follow-Up: Call to make an appointment with your doctor for an incision check in 1-2 weeks. You will also need a 6 week post- follow up appointment. Test results from this visit will be discussed in further detail at your follow- up appointment, if applicable.
[2019-07-02] MEDS: Oxytocin 30 units/NS 500 ml 30 UNITS/500 ML IV.SOLN 167 UNITS IV (09:15)
[2019-07-02] MEDS: Methylergonovine 0.2 MG/ML Ampul IM (11:45)
[2019-07-02] MEDS: Lactated Ringers 1,000 ML 100 ML IV (12:42)
[2019-07-02] MEDS: Ketorolac 30 MG/ML Syringe IV ×2 (14:13→20:20)
[2019-07-02] MEDS: Cefazolin 1 GM/50 ML BAG IV (15:29)
[2019-07-02] MEDS: 0.9% Saline Lock 10 ML Syringe IV (20:21)
[2019-07-02] MEDS: Enoxaparin 30 MG/0.3 ML Syringe SC (20:24)
[2019-07-03] MEDS: Cefazolin 1 GM/50 ML BAG IV (00:03)
[2019-07-03 00:15] VITALS: BP 106/73; PULSE 63; RESP 16; TEMP 36.6; O2SAT 99
[2019-07-03] MEDS: Ketorolac 30 MG/ML Syringe IV ×2 (02:10→08:26)
[2019-07-03] MEDS: 0.9% Saline Lock 10 ML Syringe IV ×2 (02:10→08:27)
[2019-07-03 04:10] VITALS: BP 97/61; PULSE 58; RESP 16; TEMP 36.1; O2SAT 98
[2019-07-03 06:03] LABS: Hematocrit 32.7 % (37-47); Hemoglobin 10.5 g/dL (12.0-15.0); Mean Corp Hgb Conc 32.1 g/dL (32-36); Mean Corpuscular Hgb 29.5 pg (27.0-32.0); Mean Corpuscular Volume 91.9 fL (81-99); Mean Platelet Vol. 9.8 fl (6.2-12.0); Platelet Count 196 K/mm3 (150-450); RBC Distribution Width CV 13.6 % (11.6-14.6); RBC Distribution Width SD 45.4 fl (35.1-43.9); Red Blood Count 3.56 M/mm3 (4.2-5.4); White Blood Count 9.2 K/mm3 (4.4-11.0)
[2019-07-03] MEDS: oxyCODONE 5 MG Tablet PO ×2 (08:26→13:57)
[2019-07-03 08:32] VITALS: BP 109/76; PULSE 104; RESP 16; TEMP 36.7; O2SAT 99
--- NOTE | 2019-07-03 08:48 | PN.OBGYN_ITS ---
Subjective: No issues overnight. Feels well this morning and requests discharge. Denies heavy lochia. + flatus, but minimal. Pain controlled with IV Toradol and PO Oxycodone. Objective: VSS. Fundus u/2, firm, midline. Lochia rubra scant. Incisional dressing CDI. - Physical Exam Vitals/I&O's: Vital Signs Temp Pulse Resp BP Pulse Ox 98.0 F 104 H 16 109/76 99 07/03/19 08:32 07/03/19 08:32 07/03/19 08:32 07/03/19 08:32 07/03/19 08:32 Oxygen Delivery Method Room Air Weight: 83.007 kg Body Mass Index (BMI) 33.5 Intake and Output for Last 24 Hours 07/01/19 07/02/19 07/03/19 23:59 23:59 23:59 Intake Total 3581.67 / 3581.67 50 / 50 Output Total 1999 850 / 850 Balance 1581.67 / 1581.67 -800 / -800 General: Alert, Oriented x3, Cooperative HEENT: Atraumatic, PERRLA, EOMI, Normocephalic Neck: Supple, No JVD, Negative Carotid Bruits Lungs: Clear to auscultation, Normal air movement Cardiovascular: Regular rate, No murmurs Abdomen: Bowel Sounds Present, Soft, Non Tender, Passing Flatus, Hypoactive Bowel Sounds, - - Incisional rebound tenderness, dressing CDI Extremities: No edema, Capillary Refill Less than 3 Seconds Skin: No rashes, No breakdown Musculoskeletal: No Tenderness to Palpation of Joints or Extremities Neurological: Cranial nerves II-XII grossly intact Psych/Mental Status: Normal Affect, Appropriate Laboratory Results 07/03/19 05:50: WBC 9.2, RBC 3.56 L, Hgb 10.5 L, Hct 32.7 L, MCV 91.9, MCH 29.5, MCHC 32.1, RDW Std Deviation 45.4 H, RDW Coeff of Ren 13.6, Plt Count 196, MPV 9.8 Current Medications Acetaminophen (Tylenol) 1,000 mg PO Q8H PRN PRN Reason: Pain Score 1-3/10 Bisacodyl (Dulcolax) 10 mg RECTAL UD PRN PRN Reason: If no BM Famotidine (Pepcid) 40 mg PO DAILY COUNTS INCLUDE 234 BEDS AT THE [facility] Last Admin: 07/02/19 10:59 Dose: Not Given Documented by: Hydrocortisone (Hytone) 1 applic TOPICAL TID PRN PRN; Protocol PRN Reason: Discomfort Naloxone HCl 4 mg/ Dextrose 504 mls @ 0 mls/hr IV .Q0M PRN; Protocol PRN Reason: Respiratory depression Ibuprofen (Motrin) 600 mg PO Q6H PRN PRN PRN Reason: Pain Score 1-3/10 Influenza Virus Vaccine Quadrival (Flucelvax /Fluzone ) 0.5 ml IM .ONCE ONE Stop: 07/03/19 10:01 Ketorolac Tromethamine (Toradol (Bkc)) 30 mg IV Q6H COUNTS INCLUDE 234 BEDS AT THE [facility] Stop: 07/04/19 08:01 Last Admin: 07/03/19 08:26 Dose: 30 mg Documented by: Methylergonovine Maleate (Methergine) 0.2 mg IM X1 PRN PRN Reason: Uterine Atony Naloxone HCl (Narcan) 0.02 mg IV Q1M PRN PRN Reason: RR <10 and pt unresponsive Ondansetron HCl (Zofran) 4 mg IV Q4H PRN PRN PRN Reason: Nausea Oxycodone HCl (Oxyir) 5 - 10 mg PO Q4H PRN PRN PRN Reason: Pain Score 4-10/10 Last Admin: 07/03/19 08:26 Dose: 5 mg Documented by: Prochlorperazine Edisylate (Compazine Iv) 10 mg IV Q6H PRN PRN PRN Reason: NAUSEA Senna/Docusate Sodium (Senokot-S, Baylee-Colace) 0 tablet PO DAILY PRN PRN Reason: Constipation Simethicone (Mylicon) 80 mg PO PCHS PRN PRN Reason: Indigestion/stomach pain Sodium Chloride () 5 - 15 ml IV UD PRN PRN Reason: SALINE FLUSH Last Admin: 07/03/19 08:27 Dose: 10 ml Documented by: Zolpidem Tartrate (Ambien (Generic)) 5 mg PO QHS PRN PRN PRN Reason: Insomnia Medical Necessity - Tobacco Use Smoking Status: Never smoker Assessment/Plan All Active Problems (Last Reviewed 05/24/18 @ 12:54 by Josseline C Siders) Acute cholecystitis (Acute) Cholangitis (Acute) Obstructive jaundice (Acute) Cholelithiasis (Acute) 34yo POD #1 -H/H stable -Routine postop care - -D/C home today after at least one dose of oral medication only and pain well controlled. -Educated on how to remove dressing in 24 hours, to leave steri strips in place and return in 1-2 weeks for incision check. Reviewed s/s of infection and when to call
[2019-07-03] MEDS: Ibuprofen 600 MG Tablet PO (13:57)
[2019-07-03] MEDS: Senna/Docusate Sodium 1 Tablet PO (13:57)
[2019-07-03 13:58] VITALS: BP 116/69; PULSE 97; RESP 16; TEMP 36.6; O2SAT 99
== END 2019-07-03 16:15 | disposition home or self-care (01) | DRG 788 ==
PROVIDERS: Admitting Provider Obstetrics & Gynecology; Referring Provider Obstetrics & Gynecology; Visit Provider Obstetrics & Gynecology
PROC: 10D00Z1 Extraction of Products of Conception, Low, Open Approach (ICD-10-PCS; CPT 59514; principal; 2019-07-02 07:15)
DX: O34.211 Maternal care for low transverse scar from previous cesarean delivery (principal); Z79.899 Other long term (current) drug therapy; Z3A.39 39 weeks gestation of pregnancy; Z37.0 Single live birth
CPT/HCPCS: 85025; 85027; 86850; 86900; 86901; 99218; 99251; J7120; 90686; A4216; G0378; G0463; J2405

== ENCOUNTER → 2020-03-06 14:38 | Outpatient (CLI) | payer BC, SELFPAY ==
[2019-07-02 06:03] VITALS: BMI 33.5
== END ==
PROVIDERS: Visit Provider Obstetrics & Gynecology
DX: N39.0 Urinary tract infection, site not specified (principal)
CPT/HCPCS: 87086; 87088

== ENCOUNTER → 2021-11-09 | Outpatient (CLI) | payer BC, SELFPAY ==
[2021-11-13 08:19] LABS: HPV APTIMA, High Risk Negative (Negative)
== END | disposition home or self-care (01) ==
LOC: WOBLAB 10:43 → LABSPEC 10:43
PROVIDERS: Visit Provider Obstetrics & Gynecology
DX: Z12.4 Encounter for screening for malignant neoplasm of cervix (principal)
CPT/HCPCS: 87624; 88175; G0145